=== PATIENT | female | born 1955 | race Hispanic/Latino ===

== ENCOUNTER 2023-12-05 12:25 | Emergency (ER) | payer OTHER ==
--- OUTSIDE RECORDS SUMMARY | 2023-12-05 12:30 | XMS REPORT | Continuity of Care Document ---
Author Name Unknown Address [address] [facility] [address] [place] [address] [facility] thconnect Address [address] [facility] [address] [place] [address] Care Team Providers Care Cattle Sticker Name Role Phone Donna GUADALUPE, Alessia D Primary Care Physician [phone] SIMEON VANEGAS Attending Clinician Unavailable ASHLI PHAN Attending Clinician Unavailable DESIRAE RAMIREZ Attending Clinician Unavailable ROCHELLE MURRY Attending Clinician Unavailable Syd Castillo MD Attending Clinician [phone] Attending Clinician Unavailable Les Dickinson MD Attending Clinician [phone] DANIEL MUSTAFA Attending Clinician Unavailab Gonzales_DIAMOND_NP Attending Clinician Unavailable PATEL TEIXEIRA Attending Clinician Unavailable DONNA ALESSIA D Attending Clinician Unavailable STEPH MCNEIL Attending Clinician Steph Sagastume APRN Attending Clinician PRISCILA RUDD Attending Clinician Paige ERICK Fajardo Attending Clinician Unavailable Itzel YOUNG, Alyssa Attending Clinician Unavailserena Bucio_S Attending Clinician Unavailable Loida YOUNG, Maria Elena Attending Clinician Unavailable Rafy YOUNG, Peri Attending Clinician Unavailab sung Brunner RN, Tatum Attending Clinician Unavailable LAURA BYRD Attending Clinician Unavail STEFANIA Evans M.D. Attending Clinician KAYLEE Gonzalez M.D.|PHD Attending Clinician U SIMEON Evans M.D. Attending Clinician HEBERT Reid Attending Clinician Unavailable ARIELLE MANCILLA M.D. Attending Clinician UnavailYURY Hicks M.D. Attending Clinician Unavail DEMETRICE Falk M.D. Attending Clinician Unavailab PATRICIA Velez M.D. Attending Clinician Unavail NITO Draper M.D. Attending Clinician Jessica CABEZAS_Jorge_DNU Admitting Clinician Unavailable Sage_Keegan_DIAMOND_NP Admitting Clinician Unavailable Fortunato_Ashley Admitting Clinician Unavailable Payers Payer Name Policy Type Policy Number Effective Date Expirati on Date Source [place] [id number] 2020 00:00:00 [facility] MEDICARE ADVANTAGE [id number] 2022 00:00:00 [place] [id number] 2020 00:00:00 Problems Condition Name Condition Details Condition Category Status Onset Date Resolution Date Last Treatment Date Treating Clinician Comments Source Simple obesity Simple obesity Disease Active 10-19 00:00: 00 [facility] Family history of ischemic heart disease and other diseases of the pulley worker y system Family history of ischemic heart disease and other diseases of the pulley worker y system Disease Active 10-19 00:00: 00 [facility] Dizziness Dizziness Disease Active 10-19 00:00: 00 [facility] Weakness Weakness Disease Active 10-19 00:00: 00 [facility] Diabetic polyneurop athy associated with type 2 diabetes mellitus Diabetic polyneurop athy associated with type 2 diabetes mellitus Disease Active 0 8-02 00:00: 00 [facility] Type 2 diabetes mellitus without complicati ons Type 2 diabetes mellitus without complicati ons Disease Active 0 9- 00:00: 00 [facility] Insomnia Insomnia Disease Active 0 9- 00:00: 00 [facility] TAMAR (generaliz ed anxiety disorder) TAMAR (generaliz ed anxiety disorder) Disease Active 0 9 00:00: 00 [facility] Severe episode of recurrent major depressive disorder, 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, without psychotic features Disease Active 0 9-15 00:00: 00 [facility] Acute left-sided low back pain with left-sided sciatica Acute left-sided low back pain with left-sided sciatica Disease Active 0 8-26 00:00: 00 [facility] Pain of left lower extremity Pain of left lower extremity Disease Active 0 8-19 00:00: 00 [facility] Carotid artery disease Carotid artery disease Disease Active 0 7-10 00:00: 00 [facility] Screening for diabetes mellitus (DM) Screening for diabetes mellitus (DM) Disease Active 0 7-06 00:00: 00 [facility] Mild depressive episode Mild depressive episode Disease Active 0 6-02 00:00: 00 [facility] Mild depressive episode Mild depressive episode Disease Active 0 6-02 00:00: 00 [facility] Contusion of right arm Contusion of right arm Disease Active 0 7-13 00:00: 00 [facility] Right shoulder pain Right shoulder pain Disease Active 0 7-13 00:00: 00 [facility] Right shoulder pain Right shoulder pain Disease Active 0 7-13 00:00: 00 [facility] Abnormal findings on diagnostic imaging of other parts of musculoske letal system Abnormal findings on diagnostic imaging of other parts of musculoske letal system Disease Active 2016-03 00:00: 00 [facility] Neck pain Neck pain Disease Active 2016-03 00:00: 00 [facility] Radiculopa thy Radiculopa thy Disease Active 2016-03 00:00: 00 [facility] Cough Cough Disease Active 2016-03 00:00: 00 [facility] Xerosis cutis Xerosis cutis Disease Active 08-10 00:00: 00 [facility] Other pruritus Other pruritus Disease Active 08-10 00:00: 00 [facility] De Quervain's tenosynovi tis De Quervain's tenosynovi tis Disease Active 2015-03 2 00:00: 00 [facility] Osteoarthr itis Osteoarthr itis Disease Active 09-14 00:00: 00 [facility] Iliotibial band syndrome of right side Iliotibial band syndrome of right side Disease Active 04-24 00:00: 00 [facility] Acute pain of right hip Acute pain of right hip Disease Active 03-24 00:00: 00 [facility] Allergic rhinitis Allergic rhinitis Disease Active 2014-03 00:00: 00 [facility] Abdominal pain Abdominal pain Disease Active 07-30 00:00: 00 [facility] Hemoptysis Hemoptysis Disease Active 2011-03 00:00: 00 Overview: Formattin g of this note might be different from the original. Data migrated from [employer] on 08/16/14. [facility] CAD (coronary artery disease) CAD (coronary artery disease) Disease Active 04-29 00:00: 00 Overview: Formattin g of this note might be different from the original. Formattin g of this note might be different from the original. Non-obstr uctive CAD at [facility]. [facility] Bradycardi a Bradycardi a Disease Active 12-17 00:00: 00 [facility] VT (ventricul ar tachycardi a) [place] (ventricul ar tachycardi a) Disease Active 2009-03 0 00:00: 00 Overview: Formattin g of this note might be different from the original. Formattin g of this note might be different from the original. NSVT [facility] Vitamin D deficiency Vitamin D deficiency Disease Active 08-28 00:00: 00 Overview: Formattin g of this note might be different from the original. Formattin g of this note might be different from the original. ICD-10 [facility] Palpitatio ns Palpitatio ns Disease Active 08-25 00:00: 00 [facility] Hyperlipid emia Hyperlipid emia Disease Active 08-25 00:00: 00 Overview: Formattin g of this note might be different from the original. Data migrated from [employer] on 08/16/14. [facility] History of hyperlipid emia History of hyperlipid emia Problem HL7.CCDAR2 [facility] Ab[facility] mammogram Abnormal mammogram Problem HL7.CCDAR2 Active [facility] Pain of right forearm Pain of right forearm Problem HL7.CCDAR2 Active [facility] Chest pain Chest pain Problem HL7.CCDAR2 Active [facility] Brachiorad ial pruritus Brachiorad ial pruritus Problem HL7.CCDAR2 Active [facility] Abnormal MRI, cervical spine Abnormal MRI, cervical spine Problem HL7.CCDAR2 Active [facility] Abnormal MRI, spine Abnormal MRI, spine Problem HL7.CCDAR2 Active [facility] Right elbow pain Right elbow pain Problem HL7.CCDAR2 Active [facility] Arm pain Arm pain Problem HL7.CCDAR2 Active [facility] Biceps tendinitis of right upper extremity Biceps tendinitis of right upper extremity Problem HL7.CCDAR2 Active [facility] Right wrist pain Right wrist pain Problem HL7.CCDAR2 Active [facility] Pain of right upper extremity Pain of right upper extremity Problem HL7.CCDAR2 Active [facility] Allergies, Adverse Reactions, Alerts Allergy Name Allergy Type Status Severity Reaction(s) Onset Date Inactive Date Treating Clinician Comments Source Milk (Cow) Allergy to substanc e Active 8 00:00: 00 [facility] Pollen Extract Allergy to substanc e Active 8 00:00: 00 [facility] Lactase- Lactobac illus Drug Allergy Active 8- 00:00: 00 [facility] Codeine Derivati ves drug allergy Active [facility] Dairy allergy to substanc e Active [facility] Milk allergy to substanc e Active [facility] Codeine Allergy to substanc e Active [facility] Social History Social Habit Start Date Stop Date Quantity Comments Source Sexual orientation 2023-02-27 13:53:13 Heterosexual (finding) [facility] History of tobacco use Cigarette Smoker [facility] Alcoholic beverage intake 2023-09-20 00:00:00 2023-09-20 00:00:00 Lifetime non-drinker (finding) [facility] Tobacco use and exposure 2023-09-12 00:00:00 2023-09-12 00:00:00 Smokeless tobacco non-user [facility] Cigarettes smoked current (pack per day) - Reported 2023-09-12 00:00:00 2023-09-12 00:00:00 [facility] Cigarette pack-years 2023-09-12 00:00:00 2023-09-12 00:00:00 [facility] History of Social function 2023-07-20 00:00:00 2023-07-20 00:00:00 [facility] Alcohol intake 2023-02-22 00:00:00 2023-02-22 00:00:00 Lifetime non-drinker (finding) [facility] Exposure to SARS-CoV-2 (event) 2022-05-30 00:00:00 2022-06-09 11:18:00 Not sure [facility] Sex assigned at 1955 00:00:00 1955 00:00:00 F [facility] Smoking Status Start Date Stop Date Source Never Smoker [facility] Ex-smoker 2023-09-12 00:00:00 2023-09-12 00:00:00 [facility] Medications Ordered Medication Name Filled Medication Name Start Date Stop Date Current Medication? Ordering Clinician Indication Dosage Frequency Signature (SIG) Comments Components Source Semaglutide , 1 MG/DOSE, 4 MG/3ML solution pen-injecto r 09-19 00:00: 00 Yes [id number] 1mg Inject 1 mg under the skin 1 (one) time per week. [facility] Semaglutide ,0.25 or 0.5MG/DOS, 2 MG/3ML solution pen-injecto r 09-19 00:00: 00 09-19 00:00 :00 No [id number] Inject 0.25 mg under the skin 1 (one) time per week for 28 days, THEN 0.5 mg 1 (one) time per week for 21 days. [facility] desloratadi ne (Clarinex) 5 MG tablet 07-19 00:00: 00 07-20 04:59 :00 No [id number] 5mg Take 1 tablet (5 mg total) by mouth 1 (one) time each day if needed (congestio n). [facility] amoxicillin (Amoxil) 500 MG capsule 07-19 00:00: 00 07-30 04:59 :00 No [id number] 500mg Q.[id number] 3D Take 1 capsule (500 mg total) by mouth in the morning and 1 capsule (500 mg total) at noon and 1 capsule (500 mg total) in the evening. Do all this for 10 days. [facility] OneTouch Verio test strip 06-08 00:00: 00 Yes [id number] USE TO TEST ONCE DAILY [facility] glipiZIDE XL (Glucotrol XL) 10 MG 24 hr tablet 2022-03 00:00: 00 Yes [id number] 10mg QD Take 1 tablet (10 mg total) by mouth 1 (one) time each day with breakfast. DO NOT CRUSH CHEW OR SPLIT [facility] empaglifloz in (Jardiance) 25 MG 2022-03 00:00: 00 03-01 05:59 :00 No [id number] 25mg QD Take 1 tablet (25 mg total) by mouth 1 (one) time each day. [facility] Probiotic Product (PROBIOTIC DAILY PO) 2022-03 13:35: 07 Yes Take by mouth. [facility] Coenzyme Q10 (Co Q-10) 50 MG capsule capsule 2022-03 13:35: 07 Yes 50mg QD Take 50 mg by mouth 1 (one) time each day. [facility] Probiotic Product (PROBIOTIC DAILY PO) 2022-03 09:07: 29 Yes Take by mouth. [facility] Coenzyme Q10 (Co Q-10) 50 MG capsule capsule 2022-03 09:07: 29 Yes 50mg QD Take 50 mg by mouth 1 (one) time each day. [facility] aspirin 81 MG EC tablet 2022-03 09:37: 12 01-25 00:00 :00 No 81mg QD Take 81 mg by mouth 1 (one) time each day. [facility] Coenzyme Q10 (Co Q-10) 50 MG capsule capsule 2022-03 09:20: 52 Yes 50mg QD Take 50 mg by mouth 1 (one) time each day. [facility] Probiotic Product (PROBIOTIC DAILY PO) 2022-03 09:20: 28 Yes Take by mouth. [facility] aspirin 81 MG EC tablet 2022-03 00:00: 00 Yes [id number] 81mg QD Take 1 tablet (81 mg total) by mouth 1 (one) time each day. [facility] atorvastati n (Lipitor) 80 MG tablet 2022-03 00:00: 00 01-25 05:59 :00 No [id number] 80mg QD Take 1 tablet (80 mg total) by mouth 1 (one) time each day. [facility] meclizine (Antivert) 25 MG tablet 2022-03 00:00: 00 05-25 05:59 :00 No [id number] 25mg Q.[id number] 3D Take 1 tablet (25 mg total) by mouth 3 (three) times a day if needed for dizziness. [facility] omeprazole (PriLOSEC) [address] capsule 08-16 00:00: 00 01-25 00:00 :00 No [id number] TAKE 1 CAPSULE (20 MG TOTAL) BY MOUTH 2 (TWO) TIMES A DAY IF NEEDED. DO NOT CRUSH OR CHEW. [facility] atorvastati n (Lipitor) 80 MG tablet 07-26 00:00: 07-26 04:59 :00 No [id number] 80mg QD Take 1 tablet (80 mg total) by mouth 1 (one) time each day. [facility] diclofenac (Voltaren) 75 MG EC tablet 07-18 00:00: 00 Yes [id number] TAKE 1 TABLET BY MOUTH TWICE A DAY IN THE MORNING AND IN THE EVENING [facility] aspirin 81 MG EC tablet 06-10 16:19: 21 Yes 81mg QD Take 81 mg by mouth 1 (one) time each day. [facility] Probiotic Product (PROBIOTIC DAILY PO) 06-10 16:19: 21 Yes Take by mouth. [facility] omeprazole (PriLOSEC) [address] capsule 06-10 00:00: 00 Yes [id number] 20mg Q.5D Take 1 capsule (20 mg total) by mouth 2 (two) times a day if needed (prn). Do not crush or chew. [facility] sucralfate (Carafate) 1 GM/10ML suspension 06-10 00:00: 00 07-11 04:59 :00 No [id number] 1g Take 10 mL (1 g total) by mouth in the morning and 10 mL (1 g total) at noon and 10 mL (1 g total) in the evening. Take before meals. [facility] diclofenac (Voltaren) 75 MG EC tablet 04-20 00:00: 00 05-21 05:59 :00 No [id number] 75mg Q.5D Take 1 tablet (75 mg total) by mouth in the morning and 1 tablet (75 mg total) in the evening. Do not crush, chew, or split. . [facility] glipiZIDE XL (Glucotrol XL) 10 MG 24 hr tablet 2021-03 00:00: 00 Yes [id number] TAKE 1 TABLET BY MOUTH 1 TIME EACH DAY WITH BREAKFAST. DO NOT CRUSH, CHEW, OR SPLIT. [facility] OneTouch Verio test strip 2021-03 00:00: 00 Yes [id number] USE TO TEST ONCE DAILY [facility] diclofenac (Voltaren) 75 MG EC tablet 11-24 00:00: 00 12-25 04:59 :00 No [id number] 75mg Q.5D Take 1 tablet (75 mg total) by mouth in the morning and 1 tablet (75 mg total) in the evening. Do not crush, chew, or split. . [facility] Diclofenac Sodium (Voltaren) 1 % external gel 11-24 00:00: 00 12-25 04:59 :00 No [id number] Q.[id number] 3D Apply topically 3 (three) times a day. [facility] Rosuvastati n Calcium 40 MG capsule sprinkle 05-17 00:00: 00 Yes [facility] aspirin 81 MG EC tablet 03-23 09:19: 36 03-23 00:00 :00 No 81mg 81 mg. [facility] atorvastati n (Lipitor) 80 MG tablet 03-23 00:00: 00 03-24 05:59 :00 No [id number] 80mg QD Take 1 tablet (80 mg total) by mouth 1 (one) time each day. [facility] aspirin 81 MG EC tablet 03-23 00:00: 00 03-24 05:59 :00 No [id number] 81mg Take 1 tablet (81 mg total) by mouth 1 (one) time for 1 dose. [facility] rosuvastati n (Crestor) 40 MG tablet 03-23 00:00: 00 03-23 00:00 :00 No [id number] 40mg Take 1 tablet (40 mg total) by mouth every night. [facility] glipiZIDE XL (Glucotrol XL) 10 MG 24 hr tablet 03-22 00:00: 00 03-23 05:59 :00 No [id number] 10mg QD Take 1 tablet (10 mg total) by mouth 1 (one) time each day with breakfast. Do not crush, chew, or split. [facility] rosuvastati n (Crestor) 40 MG tablet 2020-03 00:00: 00 03-23 00:00 :00 No [id number] TAKE 1 TABLET BY MOUTH EVERYDAY AT BEDTIME [facility] OneTouch Verio test strip 11-18 00:00: 00 Yes [id number] USE TO TEST ONCE DAILY [facility] ezetimibe (Zetia) 10 MG tablet 10-29 00:00: 00 03-22 00:00 :00 No [id number] 10mg QD Take 1 tablet (10 mg total) by mouth 1 (one) time each day. [facility] aspirin (ASPIR) 81 MG EC tablet 10-19 14:56: 02 Yes 81mg 81 mg. [facility] aspirin (ASPIR) 81 MG EC tablet 10-19 09:56: 02 Yes 81mg 81 mg. [facility] pregabalin (Lyrica) 75 MG capsule 10-19 00:00: 00 01-25 00:00 :00 No [id number] 75mg QD Take 1 capsule (75 mg total) by mouth 1 (one) time each day. Take 1 capsule at night [facility] linaGLIPtin (Tradjenta) 5 MG tablet 10-19 00:00: 00 03-22 00:00 :00 No [id number] 5mg QD Take 1 tablet (5 mg total) by mouth 1 (one) time each day. [facility] rosuvastati n (Crestor) 40 MG tablet 10-12 00:00: 00 01-08 00:00 :00 No [id number] TAKE 1 TABLET BY MOUTH EVERYDAY AT BEDTIME [facility] OneTouch Verio test strip 606 00:00: 00 11-18 00:00 :00 No USE TO TEST ONCE DAILY [facility] escitalopra m (Lexapro) 10 MG tablet 07-10 00:00: 00 03-23 00:00 :00 No 10mg Take 10 mg by mouth 1 (one) time each day in the morning. [facility] Lancets (OneTouch Delica Plus [id number]) [facility] 8 00:00: 00 Yes USE 1 LANCET TO TEST YOUR BLOOD SUGAR 1 TIMES A DAY. [facility] SITagliptin (Januvia) 100 MG tablet 10-13 00:00: 00 10-19 00:00 :00 No 100mg 100 mg. [facility] Escitalopra m Oxalate 10 MG Oral Tablet Escitalopra m Oxalate 10 MG Oral Tablet 2017-03 11:56: 45 Yes KAYLEE CARLSON M.D., PHD 1 TAKE 1 TABLET BY MOUTH EVERY DAY IN THE MORNING [facility] Methocarbam ol 500 MG Oral Tablet Methocarbam ol 500 MG Oral Tablet 09-29 00:00: 00 Yes STEFANIA NIX M.D. 1 TAKE 1 TABLET BEDTIME [facility] Meloxicam 15 MG Oral Tablet Meloxicam 15 MG Oral Tablet 09-29 00:00: 00 Yes STEFANIA NIX M.D. 1 QD TAKE 1 TABLET DAILY [facility] Omeprazole 40 MG Oral Capsule Delayed Release Omeprazole 40 MG Oral Capsule Delayed Release 09-29 00:00: 00 Yes STEFANIA NIX M.D. 1 QD TAKE 1 CAPSULE DAILY [facility] MethylPREDN ISolone 4 MG Oral Tablet Therapy Pack MethylPREDN ISolone 4 MG Oral Tablet Therapy Pack 09-29 00:00: 00 Yes STEFANIA NIX M.D. TAKE DIRECTED ON PACK.(tape r method) x7 days [facility] Rosuvastati n Calcium 40 MG Oral Tablet Rosuvastati n Calcium 40 MG Oral Tablet 10-24 00:00: 00 Yes SIMEON VANEGAS M.D. TAKE 1 TABLET BY MOUTH AT BEDTIME [facility] ans amoxicillin 875 mg-potassiu m clavulanate 125 mg tablet Take 1 tablet every 12 hours by oral route for 7 days. amoxicillin 875 mg-potassiu m clavulanate 125 mg tablet Take 1 tablet every 12 hours by oral route for 7 days. No 1 Q12H amoxicilli n 875 mg-potassi um clavulanat e 125 mg tablet Take 1 tablet every 12 hours by oral route for 7 days. [facility] aspirin 81 mg capsule Take 1 capsule every day by oral route. aspirin 81 mg capsule Take 1 capsule every day by oral route. No 1capsul e(s) Q1D aspirin 81 mg capsule Take 1 capsule every day by oral route. [facility] Crestor 40 mg tablet Take 1 tablet every day by oral route. Crestor 40 mg tablet Take 1 tablet every day by oral route. No 1 Q1D Crestor 40 mg tablet Take 1 tablet every day by oral route. [facility] glipizide 10 mg tablet Take 1 tablet every day by oral route. glipizide 10 mg tablet Take 1 tablet every day by oral route. No 1 Q1D glipizide 10 mg tablet Take 1 tablet every day by oral route. [facility] Aspir-81 81 MG Oral Tablet Delayed Release Aspir-81 81 MG Oral Tablet Delayed Release Yes SIMEON VANEGAS M.D. 1 QD TAKE 1 TABLET DAILY [facility] ans mupirocin 2 % topical ointment APPLY A SMALL AMOUNT TO THE AFFECTED AREA BY TOPICAL ROUTE 3 TIMES PER DAY mupirocin 2 % topical ointment APPLY A SMALL AMOUNT TO THE AFFECTED AREA BY TOPICAL ROUTE 3 TIMES PER DAY No mupirocin 2 % topical ointment APPLY A SMALL AMOUNT TO THE AFFECTED AREA BY TOPICAL ROUTE 3 TIMES PER DAY [facility] Immunizations Ordered Immunization Name Filled Immunization Name Date Status Comments Source Influenza, injectable, MDCK, preservative free, quadrivalent (flucelvax) 2021-11-17 00:00:00 Completed [facility] Influenza, injectable, MDCK, preservative free, quadrivalent (flucelvax) 2021-11-17 00:00:00 Completed [facility] Tdap 2021-08-09 00:00:00 Completed [facility] Tdap 2021-08-09 00:00:00 Completed [facility] COVID-19 vaccine, vector-nr, rS-Ad26, PF, 0.5 mL ([place]) COVID-19 vaccine, vector-nr, rS-Ad26, PF, 0.5 mL ([place]) 2021-06-29 00:00:00 Completed [facility] COVID-19 [place] 18 & Over Vaccination 2021-06-29 00:00:00 Completed [facility] COVID-19 [place] 18 & Over Vaccination 2021-06-29 00:00:00 Completed [facility] COVID-19 vaccine, vector-nr, rS-Ad26, PF, 0.5 mL ([place]) COVID-19 vaccine, vector-nr, rS-Ad26, PF, 0.5 mL ([place]) 2021-02-18 00:00:00 Completed [facility] COVID-19 Pfizer 12 & Over Vaccination 2021-02-18 00:00:00 Completed [facility] COVID-19 Pfizer 12 & Over Vaccination 2021-02-18 00:00:00 Completed [facility] COVID-19 Pfizer 12 & Over Vaccination 2021-02-18 00:00:00 Completed [facility] COVID-19 Pfizer 12 & Over Vaccination 2021-02-18 00:00:00 Completed [facility] COVID-19 Pfizer 12 & Over Vaccination (PURPLE-DILUTE) 2021-02-18 00:00:00 Completed [facility] COVID-19 Pfizer 12 & Over Vaccination (PURPLE-DILUTE) 2021-02-18 00:00:00 Completed [facility] COVID-19 Pfizer 12 & Over Vaccination (PURPLE-DILUTE) 2021-02-18 00:00:00 Completed [facility] COVID-19 Pfizer 12 & Over Vaccination (PURPLE-DILUTE) 2021-02-18 00:00:00 Completed [facility] COVID-19 Pfizer 12 & Over Vaccination (PURPLE-DILUTE) 2021-02-18 00:00:00 Completed [facility] COVID-19 Pfizer 12 & Over Vaccination (PURPLE-DILUTE) 2021-02-18 00:00:00 Completed [facility] COVID-19 [place] 18 & Over Vaccination 2021-02-18 00:00:00 Completed [facility] COVID-19 Pfizer 12 & Over Vaccination (PURPLE-DILUTE) 2021-02-18 00:00:00 Completed [facility] COVID-19 [place] 18 & Over Vaccination 2021-02-18 00:00:00 Completed [facility] Influenza, injectable, quadrivalent, preservative free 2020-12-14 00:00:00 Completed [facility] Influenza, injectable, quadrivalent, preservative free 2020-12-14 00:00:00 Completed [facility] Influenza, injectable, quadrivalent, preservative free 2020-12-14 00:00:00 Completed [facility] Influenza, injectable, quadrivalent, preservative free 2020-12-14 00:00:00 Completed [facility] Influenza, injectable, quadrivalent, preservative free (afluria, fluarix, flulaval, fluzone) 2020-12-14 00:00:00 Completed [facility] Influenza, injectable, quadrivalent, preservative free (afluria, fluarix, flulaval, fluzone) 2020-12-14 00:00:00 Completed [facility] Influenza, injectable, quadrivalent, preservative free (afluria, fluarix, flulaval, fluzone) 2020-12-14 00:00:00 Completed [facility] Influenza, injectable, quadrivalent, preservative free (afluria, fluarix, flulaval, fluzone) 2020-12-14 00:00:00 Completed [facility] Influenza, injectable, quadrivalent, preservative free (afluria, fluarix, flulaval, fluzone) 2020-12-14 00:00:00 Completed [facility] Influenza, injectable, quadrivalent, preservative free (afluria, fluarix, flulaval, fluzone) 2020-12-14 00:00:00 Completed [facility] Influenza, injectable, quadrivalent, preservative free (afluria, fluarix, flulaval, fluzone) 2020-12-14 00:00:00 Completed [facility] Zoster, Recombinant 2020-09-14 00:00:00 Completed [facility] Zoster, Recombinant 2020-09-14 00:00:00 Completed [facility] Zoster, Recombinant 2020-09-14 00:00:00 Completed [facility] Zoster, Recombinant 2020-09-14 00:00:00 Completed [facility] Zoster, Recombinant 2020-09-14 00:00:00 Completed [facility] Zoster, Recombinant 2020-09-14 00:00:00 Completed [facility] Zoster, Recombinant 2020-09-14 00:00:00 Completed [facility] Zoster, Recombinant 2020-09-14 00:00:00 Completed [facility] Zoster, Recombinant 2020-09-14 00:00:00 Completed [facility] Zoster, Recombinant 2020-09-14 00:00:00 Completed [facility] Zoster, Recombinant 2020-09-14 00:00:00 Completed [facility] Pneumococcal Polysaccharide PPV23 2020-07-16 00:00:00 Completed [facility] Zoster, Recombinant 2020-07-16 00:00:00 Completed [facility] Pneumococcal Polysaccharide PPV23 2020-07-16 00:00:00 Completed [facility] Zoster, Recombinant 2020-07-16 00:00:00 Completed [facility] Pneumococcal Polysaccharide PPV23 2020-07-16 00:00:00 Completed [facility] Zoster, Recombinant 2020-07-16 00:00:00 Completed [facility] Pneumococcal Polysaccharide PPV23 2020-07-16 00:00:00 Completed [facility] Zoster, Recombinant 2020-07-16 00:00:00 Completed [facility] Pneumococcal Polysaccharide PPV23 2020-07-16 00:00:00 Completed [facility] Zoster, Recombinant 2020-07-16 00:00:00 Completed [facility] Pneumococcal Polysaccharide PPV23 2020-07-16 00:00:00 Completed [facility] Zoster, Recombinant 2020-07-16 00:00:00 Completed [facility] Pneumococcal Polysaccharide PPV23 2020-07-16 00:00:00 Completed [facility] Zoster, Recombinant 2020-07-16 00:00:00 Completed [facility] Pneumococcal Polysaccharide PPV23 2020-07-16 00:00:00 Completed [facility] Zoster, Recombinant 2020-07-16 00:00:00 Completed [facility] Pneumococcal Polysaccharide PPV23 2020-07-16 00:00:00 Completed [facility] Zoster, Recombinant 2020-07-16 00:00:00 Completed [facility] Pneumococcal Polysaccharide PPV23 2020-07-16 00:00:00 Completed [facility] Zoster, Recombinant 2020-07-16 00:00:00 Completed [facility] Pneumococcal Polysaccharide PPV23 2020-07-16 00:00:00 Completed [facility] Zoster, Recombinant 2020-07-16 00:00:00 Completed [facility] COVID-19 vaccine, vector-nr, rS-Ad26, PF, 0.5 mL ([place]) COVID-19 vaccine, vector-nr, rS-Ad26, PF, 0.5 mL ([place]) 2020-05-25 00:00:00 Completed [facility] COVID-19 [place] 18 & Over Vaccination 2020-05-25 00:00:00 Completed [facility] COVID-19 [place] 18 & Over Vaccination 2020-05-25 00:00:00 Completed [facility] COVID-19 [place] 18 & Over Vaccination 2020-05-25 00:00:00 Completed [facility] COVID-19 [place] 18 & Over Vaccination 2020-05-25 00:00:00 Completed [facility] COVID-19 [place] 18 & Over Vaccination 2020-05-25 00:00:00 Completed [facility] COVID-19 [place] 18 & Over Vaccination 2020-05-25 00:00:00 Completed [facility] COVID-19 [place] 18 & Over Vaccination 2020-05-25 00:00:00 Completed [facility] COVID-19 [place] 18 & Over Vaccination 2020-05-25 00:00:00 Completed [facility] COVID-19 [place] 18 & Over Vaccination 2020-05-25 00:00:00 Completed [facility] COVID-19 [place] 18 & Over Vaccination 2020-05-25 00:00:00 Completed [facility] COVID-19 [place] 18 & Over Vaccination 2020-05-25 00:00:00 Completed [facility] Fluzone Quadrivalent 0.5 ML Intramuscular Suspension 2014-06-06 00:00:00 Completed [facility] Influenza, injectable, quadrivalent, preservative free 2014-06-06 00:00:00 Completed [facility] Influenza, injectable, quadrivalent, preservative free 2014-06-06 00:00:00 Completed [facility] Influenza, injectable, quadrivalent, preservative free 2014-06-06 00:00:00 Completed [facility] Influenza, injectable, quadrivalent, preservative free 2014-06-06 00:00:00 Completed [facility] Influenza, injectable, quadrivalent, preservative free (afluria, fluarix, flulaval, fluzone) 2014-06-06 00:00:00 Completed [facility] Influenza, injectable, quadrivalent, preservative free (afluria, fluarix, flulaval, fluzone) 2014-06-06 00:00:00 Completed [facility] Influenza, injectable, quadrivalent, preservative free (afluria, fluarix, flulaval, fluzone) 2014-06-06 00:00:00 Completed [facility] Influenza, injectable, quadrivalent, preservative free (afluria, fluarix, flulaval, fluzone) 2014-06-06 00:00:00 Completed [facility] Influenza, injectable, quadrivalent, preservative free (afluria, fluarix, flulaval, fluzone) 2014-06-06 00:00:00 Completed [facility] Influenza, injectable, quadrivalent, preservative free (afluria, fluarix, flulaval, fluzone) 2014-06-06 00:00:00 Completed [facility] Influenza, injectable, quadrivalent, preservative free (afluria, fluarix, flulaval, fluzone) 2014-06-06 00:00:00 Completed [facility] Fluzone Preservative Free SUSP 2012-12-17 09:09:00 Completed [facility] Influenza, seasonal, injectable, preservative free 2012-12-17 00:00:00 Completed [facility] Influenza, seasonal, injectable, preservative free 2012-12-17 00:00:00 Completed [facility] Influenza, seasonal, injectable, preservative free 2012-12-17 00:00:00 Completed [facility] Influenza, seasonal, injectable, preservative free 2012-12-17 00:00:00 Completed [facility] Influenza, seasonal, injectable, preservative free 2012-12-17 00:00:00 Completed [facility] Influenza, seasonal, injectable, preservative free 2012-12-17 00:00:00 Completed [facility] Influenza, seasonal, injectable, preservative free 2012-12-17 00:00:00 Completed [facility] Influenza, seasonal, injectable, preservative free 2012-12-17 00:00:00 Completed [facility] Influenza, seasonal, injectable, preservative free 2012-12-17 00:00:00 Completed [facility] Influenza, seasonal, injectable, preservative free 2012-12-17 00:00:00 Completed [facility] Influenza, seasonal, injectable, preservative free 2012-12-17 00:00:00 Completed [facility] Influenza, injectable, quadrivalent 2010-12-07 00:00:00 Completed [facility] Influenza, injectable, quadrivalent 2010-12-07 00:00:00 Completed [facility] Influenza, injectable, quadrivalent 2010-12-07 00:00:00 Completed [facility] Influenza, injectable, quadrivalent 2010-12-07 00:00:00 Completed [facility] Influenza, injectable, quadrivalent (afluria, fluzone) 2010-12-07 00:00:00 Completed [facility] Influenza, injectable, quadrivalent (afluria, fluzone) 2010-12-07 00:00:00 Completed [facility] Influenza, injectable, quadrivalent (afluria, fluzone) 2010-12-07 00:00:00 Completed [facility] Influenza, injectable, quadrivalent (afluria, fluzone) 2010-12-07 00:00:00 Completed [facility] Influenza, injectable, quadrivalent (afluria, fluzone) 2010-12-07 00:00:00 Completed [facility] Influenza, injectable, quadrivalent (afluria, fluzone) 2010-12-07 00:00:00 Completed [facility] Influenza, injectable, quadrivalent (afluria, fluzone) 2010-12-07 00:00:00 Completed [facility] Td (adult), 5 Lf tetanus toxoid, preservative free, adsorbed 2008-10-18 00:00:00 Completed [facility] Td (adult), 5 Lf tetanus toxoid, preservative free, adsorbed 2008-10-18 00:00:00 Completed [facility] Td (adult), 5 Lf tetanus toxoid, preservative free, adsorbed 2008-10-18 00:00:00 Completed [facility] Td (adult), 5 Lf tetanus toxoid, preservative free, adsorbed 2008-10-18 00:00:00 Completed [facility] Td (adult), 5 Lf tetanus toxoid, preservative free, adsorbed 2008-10-18 00:00:00 Completed [facility] Td (adult), 5 Lf tetanus toxoid, preservative free, adsorbed 2008-10-18 00:00:00 Completed [facility] Td (adult), 5 Lf tetanus toxoid, preservative free, adsorbed 2008-10-18 00:00:00 Completed [facility] Td (adult), 5 Lf tetanus toxoid, preservative free, adsorbed 2008-10-18 00:00:00 Completed [facility] Td (adult), 5 Lf tetanus toxoid, preservative free, adsorbed 2008-10-18 00:00:00 Completed [facility] Td (adult), 5 Lf tetanus toxoid, preservative free, adsorbed 2008-10-18 00:00:00 Completed [facility] Td (adult), 5 Lf tetanus toxoid, preservative free, adsorbed 2008-10-18 00:00:00 Completed [facility] COVID-19 [place] 18 & Over Vaccination Unknown Completed [facility] Influenza, injectable, quadrivalent (afluria, fluzone) Unknown Completed [facility] Influenza, injectable, quadrivalent, preservative free (afluria, fluarix, flulaval, fluzone) Unknown Completed [facility] Influenza, injectable, quadrivalent, preservative free (afluria, fluarix, flulaval, fluzone) Unknown Completed [facility] Influenza, seasonal, injectable, preservative free Unknown Completed [facility] Pneumococcal Polysaccharide PPV23 Unknown Completed [facility] Td (adult), 5 Lf tetanus toxoid, preservative free, adsorbed Unknown Completed [facility] Zoster, Recombinant Unknown Completed [facility] Zoster, Recombinant Unknown Completed [facility] COVID-19 Pfizer 12 & Over Vaccination ([place]) Unknown Completed [facility] Influenza, injectable, MDCK, preservative free, quadrivalent (flucelvax) Unknown Completed [facility] COVID-19 [place] 18 & Over Vaccination Unknown Completed [facility] COVID-19 [place] 18 & Over Vaccination Unknown Completed [facility] Tdap Unknown Completed [facility] COVID-19 Pfizer 12 & Over Vaccination ([place]) Unknown Completed [facility] COVID-19 Pfizer 12 & Over Vaccination ([place]) Unknown Completed [facility] Influenza, injectable, quadrivalent, preservative free (afluria, fluarix, flulaval, fluzone) Unknown Completed [facility] COVID-19 [place] 18 & Over Vaccination Unknown Completed [facility] Influenza, injectable, quadrivalent (afluria, fluzone) Unknown Completed [facility] Influenza, injectable, quadrivalent, preservative free (afluria, fluarix, flulaval, fluzone) Unknown Completed [facility] Influenza, injectable, quadrivalent, preservative free (afluria, fluarix, flulaval, fluzone) Unknown Completed [facility] Influenza, seasonal, injectable, preservative free Unknown Completed [facility] Pneumococcal Polysaccharide PPV23 Unknown Completed [facility] Td (adult), 5 Lf tetanus toxoid, preservative free, adsorbed Unknown Completed [facility] Zoster, Recombinant Unknown Completed [facility] Zoster, Recombinant Unknown Completed [facility] COVID-19 Pfizer 12 & Over Vaccination ([place]) Unknown Completed [facility] Influenza, injectable, MDCK, preservative free, quadrivalent (flucelvax) Unknown Completed [facility] COVID-19 [place] 18 & Over Vaccination Unknown Completed [facility] COVID-19 [place] 18 & Over Vaccination Unknown Completed [facility] Tdap Unknown Completed [facility] COVID-19 Pfizer 12 & Over Vaccination ([place]) Unknown Completed [facility] COVID-19 Pfizer 12 & Over Vaccination ([place]) Unknown Completed [facility] Influenza, injectable, quadrivalent, preservative free (afluria, fluarix, flulaval, fluzone) Unknown Completed [facility] COVID-19 [place] 18 & Over Vaccination Unknown Completed [facility] Influenza, injectable, quadrivalent (afluria, fluzone) Unknown Completed [facility] Influenza, injectable, quadrivalent, preservative free (afluria, fluarix, flulaval, fluzone) Unknown Completed [facility] Influenza, injectable, quadrivalent, preservative free (afluria, fluarix, flulaval, fluzone) Unknown Completed [facility] Influenza, seasonal, injectable, preservative free Unknown Completed [facility] Pneumococcal Polysaccharide PPV23 Unknown Completed [facility] Td (adult), 5 Lf tetanus toxoid, preservative free, adsorbed Unknown Completed [facility] Zoster, Recombinant Unknown Completed [facility] Zoster, Recombinant Unknown Completed [facility] COVID-19 Pfizer 12 & Over Vaccination ([place]) Unknown Completed [facility] Influenza, injectable, MDCK, preservative free, quadrivalent (flucelvax) Unknown Completed [facility] COVID-19 [place] 18 & Over Vaccination Unknown Completed [facility] COVID-19 [place] 18 & Over Vaccination Unknown Completed [facility] Tdap Unknown Completed [facility] COVID-19 Pfizer 12 & Over Vaccination ([place]) Unknown Completed [facility] COVID-19 Pfizer 12 & Over Vaccination ([place]) Unknown Completed [facility] Influenza, injectable, quadrivalent, preservative free (afluria, fluarix, flulaval, fluzone) Unknown Completed [facility] COVID-19 [place] 18 & Over Vaccination Unknown Completed [facility] Influenza, injectable, quadrivalent (afluria, fluzone) Unknown Completed [facility] Influenza, injectable, quadrivalent, preservative free (afluria, fluarix, flulaval, fluzone) Unknown Completed [facility] Influenza, injectable, quadrivalent, preservative free (afluria, fluarix, flulaval, fluzone) Unknown Completed [facility] Influenza, seasonal, injectable, preservative free Unknown Completed [facility] Pneumococcal Polysaccharide PPV23 Unknown Completed [facility] Td (adult), 5 Lf tetanus toxoid, preservative free, adsorbed Unknown Completed [facility] Zoster, Recombinant Unknown Completed [facility] Zoster, Recombinant Unknown Completed [facility] COVID-19 Pfizer 12 & Over Vaccination ([place]) Unknown Completed [facility] Influenza, injectable, MDCK, preservative free, quadrivalent (flucelvax) Unknown Completed [facility] COVID-19 [place] 18 & Over Vaccination Unknown Completed [facility] COVID-19 [place] 18 & Over Vaccination Unknown Completed [facility] Tdap Unknown Completed [facility] COVID-19 Pfizer 12 & Over Vaccination ([place]) Unknown Completed [facility] COVID-19 Pfizer 12 & Over Vaccination ([place]) Unknown Completed [facility] Influenza, injectable, quadrivalent, preservative free (afluria, fluarix, flulaval, fluzone) Unknown Completed [facility] COVID-19 [place] 18 & Over Vaccination Unknown Completed [facility] Influenza, injectable, quadrivalent (afluria, fluzone) Unknown Completed [facility] Influenza, injectable, quadrivalent, preservative free (afluria, fluarix, flulaval, fluzone) Unknown Completed [facility] Influenza, injectable, quadrivalent, preservative free (afluria, fluarix, flulaval, fluzone) Unknown Completed [facility] Influenza, seasonal, injectable, preservative free Unknown Completed [facility] Pneumococcal Polysaccharide PPV23 Unknown Completed [facility] Td (adult), 5 Lf tetanus toxoid, preservative free, adsorbed Unknown Completed [facility] Zoster, Recombinant Unknown Completed [facility] Zoster, Recombinant Unknown Completed [facility] COVID-19 Pfizer 12 & Over Vaccination ([place]) Unknown Completed [facility] Influenza, injectable, MDCK, preservative free, quadrivalent (flucelvax) Unknown Completed [facility] COVID-19 [place] 18 & Over Vaccination Unknown Completed [facility] COVID-19 [place] 18 & Over Vaccination Unknown Completed [facility] Tdap Unknown Completed [facility] COVID-19 Pfizer 12 & Over Vaccination ([place]) Unknown Completed [facility] COVID-19 Pfizer 12 & Over Vaccination ([place]) Unknown Completed [facility] Influenza, injectable, quadrivalent, preservative free (afluria, fluarix, flulaval, fluzone) Unknown Completed [facility] COVID-19 [place] 18 & Over Vaccination Unknown Completed [facility] Influenza, injectable, quadrivalent (afluria, fluzone) Unknown Completed [facility] Influenza, injectable, quadrivalent, preservative free (afluria, fluarix, flulaval, fluzone) Unknown Completed [facility] Influenza, injectable, quadrivalent, preservative free (afluria, fluarix, flulaval, fluzone) Unknown Completed [facility] Influenza, seasonal, injectable, preservative free Unknown Completed [facility] Pneumococcal Polysaccharide PPV23 Unknown Completed [facility] Td (adult), 5 Lf tetanus toxoid, preservative free, adsorbed Unknown Completed [facility] Zoster, Recombinant Unknown Completed [facility] Zoster, Recombinant Unknown Completed [facility] COVID-19 Pfizer 12 & Over Vaccination ([place]) Unknown Completed [facility] Influenza, injectable, MDCK, preservative free, quadrivalent (flucelvax) Unknown Completed [facility] COVID-19 [place] 18 & Over Vaccination Unknown Completed [facility] COVID-19 [place] 18 & Over Vaccination Unknown Completed [facility] Tdap Unknown Completed [facility] COVID-19 Pfizer 12 & Over Vaccination ([place]) Unknown Completed [facility] COVID-19 Pfizer 12 & Over Vaccination ([place]) Unknown Completed [facility] Influenza, injectable, quadrivalent, preservative free (afluria, fluarix, flulaval, fluzone) Unknown Completed [facility] COVID-19 [place] 18 & Over Vaccination Unknown Completed [facility] Influenza, injectable, quadrivalent (afluria, fluzone) Unknown Completed [facility] Influenza, injectable, quadrivalent, preservative free (afluria, fluarix, flulaval, fluzone) Unknown Completed [facility] Influenza, injectable, quadrivalent, preservative free (afluria, fluarix, flulaval, fluzone) Unknown Completed [facility] Influenza, seasonal, injectable, preservative free Unknown Completed [facility] Pneumococcal Polysaccharide PPV23 Unknown Completed [facility] Td (adult), 5 Lf tetanus toxoid, preservative free, adsorbed Unknown Completed [facility] Zoster, Recombinant Unknown Completed [facility] Zoster, Recombinant Unknown Completed [facility] COVID-19 Pfizer 12 & Over Vaccination ([place]) Unknown Completed [facility] Influenza, injectable, MDCK, preservative free, quadrivalent (flucelvax) Unknown Completed [facility] COVID-19 [place] 18 & Over Vaccination Unknown Completed [facility] COVID-19 [place] 18 & Over Vaccination Unknown Completed [facility] Tdap Unknown Completed [facility] COVID-19 Pfizer 12 & Over Vaccination ([place]) Unknown Completed [facility] COVID-19 Pfizer 12 & Over Vaccination ([place]) Unknown Completed [facility] Influenza, injectable, quadrivalent, preservative free (afluria, fluarix, flulaval, fluzone) Unknown Completed [facility] COVID-19 [place] 18 & Over Vaccination Unknown Completed [facility] Influenza, injectable, quadrivalent (afluria, fluzone) Unknown Completed [facility] Influenza, injectable, quadrivalent, preservative free (afluria, fluarix, flulaval, fluzone) Unknown Completed [facility] Influenza, injectable, quadrivalent, preservative free (afluria, fluarix, flulaval, fluzone) Unknown Completed [facility] Influenza, seasonal, injectable, preservative free Unknown Completed [facility] Pneumococcal Polysaccharide PPV23 Unknown Completed [facility] Td (adult), 5 Lf tetanus toxoid, preservative free, adsorbed Unknown Completed [facility] Zoster, Recombinant Unknown Completed [facility] Zoster, Recombinant Unknown Completed [facility] COVID-19 Pfizer 12 & Over Vaccination ([place]) Unknown Completed [facility] Influenza, injectable, MDCK, preservative free, quadrivalent (flucelvax) Unknown Completed [facility] COVID-19 [place] 18 & Over Vaccination Unknown Completed [facility] COVID-19 [place] 18 & Over Vaccination Unknown Completed [facility] Tdap Unknown Completed [facility] COVID-19 Pfizer 12 & Over Vaccination ([place]) Unknown Completed [facility] Pneumococcal Conjugate PCV 20 Unknown Completed [facility] COVID-19 [place] 18 & Over Vaccination Unknown Completed [facility] Influenza, injectable, quadrivalent (afluria, fluzone) Unknown Completed [facility] Influenza, injectable, quadrivalent, preservative free (afluria, fluarix, flulaval, fluzone) Unknown Completed [facility] Influenza, injectable, quadrivalent, preservative free (afluria, fluarix, flulaval, fluzone) Unknown Completed [facility] Influenza, seasonal, injectable, preservative free Unknown Completed [facility] Pneumococcal Polysaccharide PPV23 Unknown [facility] 5 Lf tetanus toxoid, preservative free, adsorbed Unknown Completed [facility] Zoster, Recombinant Unknown Completed [facility] Zoster, Recombinant Unknown Completed [facility] COVID-19 Pfizer 12 & Over Vaccination ([place]) Unknown Completed [facility] Influenza, injectable, MDCK, preservative free, quadrivalent (flucelvax) Unknown Completed [facility] COVID-19 [place] 18 & Over Vaccination Unknown Completed [facility] COVID-19 [place] 18 & Over Vaccination Unknown Completed [facility] Tdap Unknown Completed [facility] COVID-19 Pfizer 12 & Over Vaccination ([place]) Unknown Completed [facility] Pneumococcal Conjugate PCV 20 Unknown Completed [facility] Vital Signs Vital Name Observation Time Observation Value Comments S ource Systolic blood pressure 2023-09-20 14:43:00 116 mm[Hg] [facility] Diastolic blood pressure 2023-09-20 14:43:00 69 mm[Hg] [facility] Heart rate 2023-09-20 14:43:00 60 /min [facility] Body temperature 2023-09-20 14:43:00 36.67 Ariane [facility] Body height 2023-09-20 14:43:00 166.5 cm [facility] Body weight 2023-09-20 14:43:00 86.728 kg [facility] BMI 2023-09-20 14:43:00 31.29 kg/m2 [facility] Systolic blood pressure 2023-09-12 15:52:00 134 mm[Hg] [facility] Diastolic blood pressure 2023-09-12 15:52:00 77 mm[Hg] [facility] Heart rate 2023-09-12 15:52:00 67 /min [facility] Body temperature 2023-09-12 15:52:00 36.78 Ariane [facility] Body height 2023-09-12 15:52:00 166.4 cm [facility] Body weight 2023-09-12 15:52:00 87.544 kg [facility] BMI 2023-09-12 15:52:00 31.63 kg/m2 [facility] Systolic blood pressure 2023-07-20 19:55:00 142 mm[Hg] [facility] Diastolic blood pressure 2023-07-20 19:55:00 74 mm[Hg] [facility] Heart rate 2023-07-20 19:55:00 75 /min [facility] Body temperature 2023-07-20 19:55:00 36.89 Ariane [facility] Respiratory rate 2023-07-20 19:55:00 16 /min [facility] [facility] Body height 2023-07-20 19:55:00 166.4 cm [facility] Body weight 2023-07-20 19:55:00 87.998 kg [facility] BMI 2023-07-20 19:55:00 31.79 kg/m2 [facility] Systolic blood pressure 2023-03-01 15:10:00 139 mm[Hg] [facility] Diastolic blood pressure 2023-03-01 15:10:00 74 mm[Hg] [facility] Heart rate 2023-03-01 15:10:00 84 /min [facility] Body height 2023-03-01 15:10:00 166.4 cm [facility] Body weight 2023-03-01 15:10:00 86.637 kg [facility] BMI 2023-03-01 15:10:00 31.30 kg/m2 [facility] Body weight 2023-02-22 19:31:00 86.183 kg [facility] BMI 2023-02-22 19:31:00 31.14 kg/m2 [facility] Systolic blood pressure 2023-02-02 15:08:00 125 mm[Hg] [facility] Diastolic blood pressure 2023-02-02 15:08:00 77 mm[Hg] [facility] Heart rate 2023-02-02 15:08:00 82 /min [facility] Body temperature 2023-02-02 15:08:00 37.06 Ariane [facility] Body height 2023-02-02 15:08:00 166.4 cm [facility] Body weight 2023-02-02 15:08:00 86.183 kg [facility] BMI 2023-02-02 15:08:00 31.14 kg/m2 [facility] Oxygen saturation in Arterial blood by Pulse oximetry 2023-02-02 15:08:00 97 /min [facility] Systolic blood pressure 2023-01-25 15:17:00 115 mm[Hg] [facility] Diastolic blood pressure 2023-01-25 15:17:00 57 mm[Hg] [facility] Heart rate 2023-01-25 15:17:00 61 /min [facility] Body height 2023-01-25 15:17:00 165.1 cm [facility] Body weight 2023-01-25 15:17:00 85.73 kg [facility] BMI 2023-01-25 15:17:00 31.45 kg/m2 [facility] Oxygen saturation in Arterial blood by Pulse oximetry 2023-01-25 15:17:00 97 /min [facility] Systolic blood pressure 2022-06-10 21:15:00 117 mm[Hg] [facility] Diastolic blood pressure 2022-06-10 21:15:00 73 mm[Hg] [facility] Heart rate 2022-06-10 21:15:00 64 /min [facility] Body temperature 2022-06-10 21:15:00 36.39 Ariane [facility] Respiratory rate 2022-06-10 21:15:00 16 /min [facility] Body weight 2022-06-10 21:15:00 88.905 kg [facility] BMI 2022-06-10 21:15:00 32.62 kg/m2 [facility] Body height 2021-11-24 13:29:00 165.1 cm [facility] Body weight 2021-11-24 13:29:00 82.555 kg [facility] BMI 2021-11-24 13:29:00 30.29 kg/m2 [facility] BP Diastolic 2021-08-09 00:00:00 83 mm[Hg] [facility] Height 2021-08-09 00:00:00 66 [in_i] [facility] BMI (Body Mass Index) 2021-08-09 00:00:00 31.4 kg/m2 [facility] BP Systolic 2021-08-09 00:00:00 139 mm[Hg] [facility] Body Weight 2021-08-09 00:00:00 194.6 [lb_av] [facility] Systolic blood pressure 2021-03-23 15:11:00 110 mm[Hg] [facility] Diastolic blood pressure 2021-03-23 15:11:00 72 mm[Hg] [facility] Heart rate 2021-03-23 15:11:00 58 /min [facility] Body temperature 2021-03-23 15:11:00 36.22 Ariane [facility] Body height 2021-03-23 15:11:00 167.6 cm [facility] Body weight 2021-03-23 15:11:00 84.278 kg [facility] BMI 2021-03-23 15:11:00 29.99 kg/m2 [facility] Systolic blood pressure 2021-03-22 14:55:00 120 mm[Hg] [facility] Diastolic blood pressure 2021-03-22 14:55:00 78 mm[Hg] [facility] Heart rate 2021-03-22 14:55:00 58 /min [facility] Body temperature 2021-03-22 14:55:00 36.22 Ariane [facility] Respiratory rate 2021-03-22 14:55:00 16 /min [facility] Body height 2021-03-22 14:55:00 166.4 cm [facility] Body weight 2021-03-22 14:55:00 84.369 kg [facility] BMI 2021-03-22 14:55:00 30.48 kg/m2 [facility] Systolic blood pressure 2020-10-19 14:55:00 105 mm[Hg] [facility] Diastolic blood pressure 2020-10-19 14:55:00 67 mm[Hg] [facility] Heart rate 2020-10-19 14:55:00 59 /min [facility] Body temperature 2020-10-19 14:55:00 36.44 Ariane [facility] Respiratory rate 2020-10-19 14:55:00 16 /min [facility] Body weight 2020-10-19 14:55:00 87.091 kg [facility] BMI 2020-10-19 14:55:00 31.46 kg/m2 [facility] BP Systolic 2017-08-17 15:47:00 115 mm[Hg] Location: RUE; Position: Sitting [facility] BP Diastolic 2017-08-17 15:47:00 62 mm[Hg] Location: RUE; Position: Sitting [facility] Height 2017-08-17 15:47:00 65.5 [in_us] [facility] Weight 2017-08-17 15:47:00 204 [lb_av] [facility] Body Mass Index Calculated 2017-08-17 15:47:00 33.43 kg/m2 [facility] Heart Rate 2017-08-17 15:47:00 60 /min Quality: Normal [facility] BP Systolic 2017-08-01 08:11:00 132 mm[Hg] Location: RUE; Position: Sitting [facility] BP Diastolic 2017-08-01 08:11:00 68 mm[Hg] Location: RUE; Position: Sitting [facility] Weight 2017-08-01 08:11:00 205.375 [lb_av] [facility] Body Mass Index Calculated 2017-08-01 08:11:00 33.66 kg/m2 [facility] Heart Rate 2017-08-01 08:11:00 58 /min Location: R Brachial Artery; [facility] Respiration Rate 2017-08-01 08:11:00 18 /min Quality: Normal [facility] BP Systolic 2017-02-14 10:37:00 118 mm[Hg] Location: RUE; [facility] BP Diastolic 2017-02-14 10:37:00 73 mm[Hg] Location: RUE; [facility] Height 2017-02-14 10:37:00 65.5 [in_us] [facility] Heart Rate 2017-02-14 10:37:00 51 /min [facility] Respiration Rate 2017-02-14 10:37:00 16 /min Quality: Normal [facility] Procedures Procedure Date / Time Performed Performing Clinicia n Source POCT GLUCOSE 2023-09-20 14:47:00 Desirae Ramirez [facility] COMPREHENSIVE METABOLIC PANEL 2023-09-12 17:12[facility] 2023-09-12 17:12:00 [facility] ealth HEMOGLOBIN A1C 2023-09-12 17:12[facility]00 [facility] 2023-03-01 15:15:00 Send [facility] alth POCT GLYCOSYLATED HEMOGLOBIN (HGB A1C) 2021-03-22 [facility] 2021-03-22 15:07[facility]SE 2020-10-19 16:49:00 Send [facility] alth POCT GLYCOSYLATED HEMOGLOBIN (HGB A1C) 2020-10-19 16:49[facility] X[facility] SHOULDER MIN 2 VWS RIGHT [id number] 2017-09-29 00:00:00 [facility] [U] XRAY ELBOW MIN 3 VWS RIGHT [id number] 2017-09-29 00:00:00 [facility] [U] XRAY WRIST MIN 3 VWS RIGHT [id number] 2017-09-29 00:00:00 [facility] [U] XRAY HUMERUS MIN 2 VWS RIGHT [id number] 2017-09-29 00:00:00 [facility] Spine cervical w/wo contrast [id number] 2017-02-28 00:00:00 [facility] XRAY Chest 2 views [id number] 2017-02-14 00:00:00 [facility] [N] Carotid Bilateral [id number] 2017-02-14 00:00:00 [facility] XRAY Spine cervical 2 or 3 view [id number] 2017-02-14 00:00:00 [facility] Hyste[facility] En[facility] Start Date/Time End Date/Time Encounter Type Admission Type Attending Clinicians Care Facility Care Department Encounter ID Source 2022-08-03 17:52:26 Outpatient [facility] [id number] [facility] 2022-07-25 13:01:28 Outpatient [facility] [id number] [facility] 2022-07-19 04:28:15 Outpatient [facility] [id number] [facility] 2022-07-18 19:57:01 Outpatient [facility] [id number] [facility] 2022-06-23 08:44:43 Outpatient [facility] [id number] [facility] 2022-06-13 01:28:19 Outpatient [facility] [id number] [facility] 2022-06-12 17:10:26 Outpatient [facility] [id number] [facility] 2022-06-09 08:56:24 Outpatient [facility] [id number] [facility] 2022-04-19 13:55:31 Outpatient [facility] [id number] [facility] 2022-04-11 09:51:09 Outpatient [facility] [id number] [facility] 2021-03-23 09:47:27 Outpatient SIMEON VANEGAS [facility] [id number] [facility] 2021-03-23 09:46:32 Outpatient [facility] [id number] [facility] 2021-03-22 09:59:53 Outpatient FLORENCE PHANA [facility] [id number] [facility] 2023-12-21 09:00:00 2023-12-21 09:00:00 Outpatient DESIRAE RAMIREZ [facility] [id number] [facility] 2023-10-05 13:15:00 2023-10-05 13:15:00 Outpatient ROCHELLE MURRY [facility] [id number] [facility] 2023-09-29 10:00:00 2023-09-29 10:22:49 Outpatient [facility] [id number] [facility] 2023-09-20 09:40:00 2023-09-20 10:23:33 Office Visit Desirae Ramirez [facility] 1.2.840.114 350.1.13.58 9.2.7.2.686 [id number] [facility] 2023-09-12 10:40:00 2023-09-12 12:06:09 Office Visit Jonathan Syd [facility] [address] 1.2.840.114 350.1.13.58 9.2.7.2.686 [id number] [facility] 2023-07-20 15:00:00 2023-07-20 15:40:38 Office Visit Jonathan Syd [facility] [address] 1.2.840.114 350.1.13.58 9.2.7.2.686 [id number] [facility] 2023-05-25 00:00:00 2023-05-25 00:00:00 Outpatient RAULITO_L_D NU VFP VFP [id number] [facility] 2023-03-01 09:00:00 2023-03-01 09:00:00 Office Visit ASHLI PHAN [facility] [address] 1.2.840.114 350.1.13.58 9.2.7.2.686 [id number] [facility] 2023-02-22 13:15:00 2023-02-22 14:12:47 Office Visit Les Dickinson [facility] 1 1.2.840.114 350.1.13.58 9.2.7.2.686 [id number] [facility] 2023-02-15 09:30:00 2023-02-15 09:30:00 Outpatient DANIEL MUSTAFA [facility] [id number] [facility] 2023-02-02 09:30:00 2023-02-02 10:04:32 Office Visit Daniel Mustafa [facility] [address] 1.2.114 350.1.13.58 9.2.7.2.686 [id number] [facility] 2023-02-02 08:00:00 2023-02-02 08:49:29 Outpatient [facility] [id number] [facility] 2023-01-25 09:40:00 2023-01-25 09:49:50 Office Visit Simeon Vanegas [facility] 1..114 350.1.13.58 9.2.7.2.686 [id number] [facility] 2022-10-17 00:00:00 2022-10-17 00:00:00 Outpatient Smith_E_HOU _NP VFP VFP [id number] [facility] 2022-08-03 09:00:00 2022-08-03 09:00:00 Outpatient PATEL TEIXEIRA [facility] [id number] [facility] 2022-07-27 13:05:00 2022-07-27 13:05:00 External Contact LLUVIA MEREDITHSHANTAL EXT MSRDP LOCATION 1..114 350.1.13.58 9.2.7.2.686 [id number] [facility] 2022-06-10 15:40:00 2022-06-10 15:40:00 Office Visit ALESSIA THOMPSON [facility] [address] 1.2.114 350.1.13.58 9.2.7.2.686 [id number] [facility] 2022-04-29 07:56:00 2022-04-29 23:59:00 Outpatient STEPH MCNEIL [id number] 2022-04-20 09:20:00 2022-04-20 09:59:39 Office Visit Steph Mcneil [facility] 1.2.840.114 350.1.13.58 9.2.7.2.686 [id number] [facility] 2021-12-16 09:36:00 2021-12-16 14:06:00 [facility] [id number] [facility] 2021-12-16 10:15:00 2021-12-16 10:15:00 Outpatient ERICK VELASQUEZ [facility] [id number] [facility] 2021-12-16 00:00:00 2021-12-16 00:00:00 Nurse Triage Alyssa Robbins Kimberly [facility] 1.2.840.114 350.1.13.58 9.2.7.2.686 [id number] [facility] 2021-11-24 08:20:00 2021-11-24 08:56:33 Office Visit Steph Mcneil [facility] 1.2.840.114 350.1.13.58 9.2.7.2.686 [id number] [facility] 2021-08-09 06:22:00 2021-08-09 06:22:00 Outpatient Abraham_S VFP VFP [id number] [facility] e 2021-08-09 00:00:00 2021-08-09 00:00:00 Nurse Triage Maria Elena Mariscal Darlene [facility] 1..840.114 350.1.13.58 9.2.7.2.686 [id number] [facility] 2021-08-09 00:00:00 2021-08-09 00:00:00 MIGUELANGEL Vidal: [id number] [place] [address] , Ph. VFP [place] - [facility] - _DIAMOND_Christine conklin (JAROD) [id number] [facility] e 2021-05-11 00:00:00 2021-05-11 00:00:00 Telephone Peri Hillman Catrina [facility] 1.2.840.114 350.1.13.58 9.2.7.2.686 [id number] [facility] 2021-03-23 09:00:00 2021-03-23 09:44:34 Office Visit LogSimeon alejo [facility] 1.2.840.114 350.1.13.58 9.2.7.2.686 [id number] [facility] 2021-03-22 09:00:00 2021-03-22 09:59:54 Office Visit Ashli Phan [facility] 1.2.840.114 350.1.13.58 9.2.7.2.686 [id number] [facility] 2021-03-22 00:00:00 2021-03-22 00:00:00 Patient Outreach Kannan Tatum BrunnerTatum [facility] 1.2.840.114 350.1.13.58 9.2.7.2.686 [id number] [facility] 2021-01-08 00:00:00 2021-01-08 00:00:00 Refill Simeon Vanegas [facility] [address] [facility] 1.2.840.114 350.1.13.58 9.2.7.2.686 [id number] [facility] 2020-11-18 00:00:00 2020-11-18 00:00:00 Refill Ashli Phan [facility] 1.2.840.114 350.1.13.58 9.2.7.2.686 [id number] [facility] 2020-10-20 00:00:00 2020-10-20 00:00:00 Refill Ashli Phan [facility] 1.2.840.114 350.1.13.58 9.2.7.2.686 [id number] [facility] 2020-10-19 09:20:56 2020-10-19 11:01:47 Office Visit Ashli Phan [facility] 1.2.840.114 350.1.13.58 9.2.7.2.686 [id number] [facility] 2020-04-30 07:18:00 2020-04-30 23:59:00 Outpatient LAURA BYRD [facility] [id number] [facility] 2017-09-29 13:00:00 2017-09-29 13:00:00 Appointmen t; STEFANIA NIX M.D. MANSOUR, ASHTON, M.D. [facility] [id number] [facility] 2017-08-17 16:00:00 2017-08-17 16:00:00 Appointmen t; KAYLEE CARLSON M.D.|PHD KAYLEE CARLSON M.D.|PHD [facility]iatry [id number] [facility] 2017-08-01 08:00:00 2017-08-01 08:00:00 Appointmen t; SIMEON VANEGAS M.D. LOGHIN, CATALIN, M.D. [facility] Card[facility] [id number] [facility] 2017-04-06 15:00:00 2017-04-06 15:00:00 Appointmen t; KAYLEE CARLSON M.D.|PHD KAYLEE CARLSON M.D.|PHD [facility] Psychiatry [id number] [facility] 2017-03-07 08:30:00 2017-03-07 08:30:00 Appointmen t; KAYLEE CARLSON M.D.|PHD KAYLEE CARLSON M.D.|PHD [facility] [id number] [facility] 2017-02-22 14:00:00 2017-02-22 14:00:00 Appointmen t; ERNESTO, HEBERT OROZCO, ECHO [facility] Non-Invasiv e [id number] [facility] 2017-02-14 10:20:00 2017-02-14 10:20:00 Appointmen t; SIMEON VANEGAS M.D. LOGHIN, CATALIN, M.D. [facility] [id number] [facility] 2016-12-09 14:45:00 2016-12-09 14:45:00 Appointmen t; ARIELLE MANCILLA M.D. ROGGE, MEGAN, M.D. [facility] [id number] [facility] 2016-12-09 14:45:00 2016-12-09 14:45:00 Appointmen t; YURY ARIZA M.D. SUAREZ, ANDREA, M.D. [facility] [id number] [facility] 2016-12-02 14:30:00 2016-12-02 14:30:00 Appointmen t; ARIELLE MANCILLA M.D. ROGGE, MEGAN, M.D. [facility] [id number] [facility] 2016-11-25 10:00:00 2016-11-25 10:00:00 Appointmen t; SIMEON VANEGAS M.D. LOGHIN, CATALIN, M.D. [facility] [id number] [facility] 2016-11-24 08:00:00 2016-11-24 08:00:00 Appointmen t; KAYLEE CARLSON M.D.|PHD KAYLEE CARLSON M.D.|PHD [facility] [id number] [facility] 2016-10-28 14:45:00 2016-10-28 14:45:00 Appointmen t; YURY ARIZA M.D. SUAREZ, ANDREA, M.D. [facility] [id number] [facility] 2016-08-10 09:30:00 2016-08-10 09:30:00 Appointmen t; DEMETRICE THOMPSON M.D. NGUYEN, TONY, M.D. [facility] [id number] [facility] 2016-08-09 16:30:00 2016-08-09 16:30:00 Appointmen t; KAYLEE CARLSON M.D.|PHD KAYLEE CARLSON M.D.|PHD [facility] [id number] [facility] 2016-05-12 16:30:00 2016-05-12 16:30:00 Appointmen t; KAYLEE CARLSON M.D.|PHD KAYLEE CARLSON M.D.|PHD [facility] [id number] [facility] 2016-02-26 09:40:00 2016-02-26 09:40:00 Appointmen t; SIMEON VANEGAS M.D. LOGHIN, CATALIN, M.D. [facility] [id number] [facility] 2016-02-16 16:30:00 2016-02-16 16:30:00 Appointmen t; KAYLEE CARLSON M.D.|PHD KAYLEE CARLSON M.D.|PHD [facility] [id number] [facility] 2015 16:30:00 2015 16:30:00 Appointmen t; KAYLEE CARLSON M.D.|PHD KAYLEE CARLSON M.D.|PHD [facility] [id number] [facility] 2015-09-17 16:30:00 2015-09-17 16:30:00 Appointmen t; KAYLEE CARLSON M.D.|PHD KAYLEE CARLOSN M.D.|PHD [facility] [id number] [facility] 2015-09-15 08:20:00 2015-09-15 08:20:00 Appointmen t; SIMEON VANEGAS M.D. LOGHIN, CATALIN, M.D. [facility] [id number] [facility] 2015-08-13 15:00:00 2015-08-13 15:00:00 Appointmen t; KAYLEE CARLSON M.D.|PHD KAYLEE CARLSON M.D.|PHD [facility] [id number] [facility] 2015-08-07 08:45:00 2015-08-07 08:45:00 Appointmen t; PATRICIA ANDREW M.D. SZETO, JOCELYN, M.D. [facility] [id number] [facility] 2015-07-16 15:30:00 2015-07-16 15:30:00 Appointmen t; KAYLEE CARLSON M.D.|PHD KAYLEE CARLSON M.D.|PHD [facility] [id number] [facility] 2015-07-14 16:00:00 2015-07-14 16:00:00 Appointmen t; PATRICIA ANDREW M.D. SZETO, JOCELYN, M.D. [facility] [id number] [facility] 2015-06-23 15:40:00 2015-06-23 15:40:00 Appointmen t; PATRICIA ANDREW M.D. SZETO, JOCELYN, M.D. [facility] [id number] [facility] 2015-06-11 09:30:00 2015-06-11 09:30:00 Appointmen t; KAYLEE CARLSON M.D.|PHD KAYLEE CARLSON M.D.|PHD [facility] [id number] [facility] 2015-05-15 10:00:00 2015-05-15 10:00:00 Appointmen t; SIMEON VANEGAS M.D. LOGHIN, CATALIN, M.D. [facility] [id number] [facility] 2015-05-05 15:30:00 2015-05-05 15:30:00 Appointmen t; KAYLEE CARLSON M.D.|PHD KAYLEE CARLSON M.D.|PHD [facility] [id number] [facility] 2015-05-01 10:00:00 2015-05-01 10:00:00 Appointmen t; SIMEON VANEGAS M.D. LOGHIN, CATALIN, M.D. [facility] [id number] [facility] 2015-04-24 08:20:00 2015-04-24 08:20:00 Appointmen t; NITO ZELAYA M.D. WILLIAMS, KEVIN, M.D. [facility] [id number] [facility] 2015-04-02 15:30:00 2015-04-02 15:30:00 Appointmen t; KAYLEE CARLSON M.D.|PHD KAYLEE CARLSON M.D.|PHD [facility] [id number] [facility] 2015-03-24 08:35:00 2015-03-24 08:35:00 Appointmen t; NITO ZELAYA M.D. WILLIAMS, KEVIN, M.D. [facility] [id number] [facility] 2015-03-06 15:30:00 2015-03-06 15:30:00 KAYLEE Jackson M.D.|PHD KAYLEE CARLSON M.D.|PHD [facility] [id number] [facility] Results Test Description Test Time Test Comments Results Result Co mments Source [facility] [id number] 10:42:28* Test Item Value Reference Range Interpretation Comme nts Cholesterol (test code = 2093-3) 257 See_Comment H [Automated messa ge] The system which generated this result transmitted reference range: <200 MG/DL. The reference range was not used to interpret this result as normal/abnormal. TRIGLYCERIDES (test code = 2571-8) 143 See_Comment [Automated messa ge] The system which generated this result transmitted reference range: <150 MG/DL. The reference range was not used to interpret this result as normal/abnormal. HDL CHOLESTEROL (test code = 2085-9) 53 See_Comment [Automated messa ge] The system which generated this result transmitted reference range: >39 MG/DL. The reference range was not used to interpret this result as normal/abnormal. LDL-CHOLESTEROL (test code = 30574-7) 175 See_Comment H NOTE: CALCULATED LDL IS BASED ON ELENA-CHAPA METHOD WHICHINCLUDES ADJUSTABLE TRIGLYCERIDE:VLDL CHOLESTEROL RATIO.THIS FACTOR VARIES BY MEASURED TRIGLYCERIDE AND NON-HDLCHOLESTEROL CONCENTRATIONS WITH INCREASED CALCULATED LDL SEENIN HIGHER TRIGLYCERIDE OR LOWER NON-HDL SPECIMENS. FOR MOREINFORMATION, SEE CLIENT ANNOUNCEMENT AT [email or web address] [Automated message] The system which generated this result transmitted reference range: <100 MG/DL. The reference range was not used to interpret this result as normal/abnormal. LDL/HDL RATIO (test code = 91484-9) 3.30 See_Comment H Testing Performe d At:C[facility]: ?[facility], [address] [place] [id number] Director: April Stanley M.D., [facility] #: [id number] [Automated message] The system which generated this result transmitted reference range: <3.22 RATIO. The reference range was not used to interpret this result as normal/abnormal. Lab Interpretation (test code = 20075-3) [facility]normal [facility] [id number] 10:42:28* Test Item Value Reference Range Interpretation Comme nts GLUCOSE (test code = 2345-7) 144 70-99 H BUN (test code = 3094-0) 13 8-23 CREATININE (test code = 2160-0) 0.81 0.60-1.30 eGFR If NonAfricn Am (test code = 09189-7) 81 See_Comment [Automated message] The system which generated this result transmitted reference range: >60 ML/MIN/1.73. The reference range was not used to interpret this result as normal/abnormal. BUN/CREATININE RATIO (test code = 3097-3) 16 6-28 SODIUM (test code = 2951-2) 141 133-146 POTASSIUM (test code = 2823-3) 4.8 3.5-5.4 CHLORIDE (test code = 2075-0) 100 95-107 CARBON DIOXIDE (test code = 2027-) 28 19-31 CALCIUM (test code = 11047-8) 10.1 8.5-10.5 PROTEIN, TOTAL (test code = 2885-2) 7.2 6.1-8.3 ALBUMIN (test code = 82674-7) 4.8 3.5-5.2 GLOBULIN (test code = 60513-1) 2.4 1.9-3.7 A/G RATIO (test code = 1759-0) 2.0 1.0-2.6 BILIRUBIN, TOTAL (test code = 1975-2) 0.6 See_Comment [Automated messa ge] The system which generated this result transmitted reference range: <=1.2 MG/DL. The reference range was not used to interpret this result as normal/abnormal. ALKALINE PHOSPHATASE (test code = 6768-6) 84 U/L 40-140 AST (test code = 1920-8) 25 U/L 9-40 ALT (test code = 1742-6) 37 U/L 5-40 Testing Performed At:CPL: ?[facility], [address] [place] [address], [place] [address]Jnlwcnotjz Director: April Stanley M.D., [place] #: [id number] Lab Interpretation (test code = 21572-1) Abnormal [place] [facility] [id number] 10:21:26* Test Item Value Reference Range Interpretation Comme [facility] HEMOGLOBIN A1c (test code = 4548-4) 8.4 % 4.2-5.6 H ? [employer] GUIDELINES FOR HGB A1C: ?PREDIABETES/INCREASED RISK . . . . . . . 5.7-6.4% ?DIAGNOSIS OF DIABETES ?. . . . . . . . . >=6.5% ?WITH CONFIRMATION OR APPROPRIATE SYMPTOMS ? ? NOTE: ASSAY MAY BE AFFECTED BY HEMOGLOBINOPATHIES (SICKLE ? ? CELL ANEMIA, S-C DISEASE, OTHERS) OR ARTIFICIALLY LOWERED BY ? ? DECREASED RED CELL SURVIVAL (HEMOLYTIC ANEMIAS, BLOOD LOSS, ? ? ETC.). ?CONSIDER ALTERNATE TESTING OR LABORATORY CONSULTATION. Testing Performed At:CPL: ?[facility], [address] [place], [place] [address]Laboratory Director: April Stanley M.D., [facility] #: [id number] Lab Interpretation (test code = 92892-5) Abnormal [facility] glucose manually [id number] 15:15:00* Test Item Value Reference Range Interpretation Comme [facility] Glucose Blood, POC (test cod e = [id number]) 98 mg/dL 70-180 [facility] glycosylated hemoglobin (Hb A1C)2021-03-22 15:25:00* Test Item Value Reference Range Interpretation Comme [facility] Hemoglobin A1C (test code = 4548-4) 6.5 % 4.0-6.0 A Lab Interpretation (test cod e = 90811-9) Abnormal [facility] [id number] 15:07:00* Test Item Value Reference Range Interpretation Comme [facility] Glucose Blood, POC (test cod e = 0579551) 120 mg/dL 70-180 Lab Interpretation (test cod e = 53521-3) Normal [facility] [id number] 16:49:00* Test Item Value Reference Range Interpretation Comme [facility] Glucose Blood, POC (test cod e = 5193825) 113 mg/dL 70-180 Lab Interpretation (test cod e = 36582-7) Normal [facility] glycosylated hemoglobin (Hb A1C)2020-10-19 16:49:00* Test Item Value Reference Range Interpretation Comme nts Hemoglobin A1C (test code = 4548-4) Lab Interpretation (test cod e = 73958-6) Normal [facility][U] XRAY HUMERUS MIN 2 VWS RIGHT [id number] 13:41:00Images acquired, not reported on this accession number.[facility][U] XRAY ELBOW MIN 3 VWS RIGHT [id number] 13:34:00Images acquired, not reported on this accession number.[facility][U] XRAY SHOULDER MIN 2 VWS RIGHT [id number] 13:34:00Images acquired, not reported on this accession number.[facility][U] XRAY WRIST MIN 3 VWS RIGHT [id number] 13:34:00Images acquired, not reported on this accession number.[facility]ammo Screen Steve w elyssa [id number] 2017-08-29 08:04:00BILATERAL DIGITAL SCREENING MAMMOGRAM 3D/2D WITH CAD: 08/29/2017CLINICAL: /Screen. Current study wasevaluated with a Computer Aided Detection (CAD) system. COMPARISON:Comparison is made to exams dated: 08/26/2016 mammogram, 12/25/2014mammogram, 06/18/2014 mammogram, and 06/06/2014 mammogram - [facility]. TECHNIQUE: Digital Breast Tomosynthesis was performed and utilized forInterpretation. Current study was also evaluated with a Computer AidedDetection (CAD) system.FINDINGS:There are scattered fibroglandular densities in both breasts. There is a biopsy clip in the right breast. No significant masses, calcifications, or other findings are seen in eitherbreast. There has been no significant interval change.IMPRESSION: BENIGNRECOMMENDATION:There is no mammographic evidence of malignancy. A 1 yearscreening mammogram is recommended.(08/30/2018) This exam was interpreted [id number] at [facility] [place]. Professional services are provided by [facility].Jyothi Leroy M.D. to/penrad:08/30/2017 10:28:29 [employer](s): RT Boni(R)(M), [facility] BCletter sent: BI-RADS 1/2 Mammogram BI- RADS: 2 Benign--Read by: Jyothi Leroy MDDictated Date/time: 08/30/17 10:28Electronically Signed by: Jyothi Leroy MD 08/30/1809:28[facility] CBC (INCLUDES DIFF/PLT)2017-08-01 09:14:01* Test Item Value Reference Range Interpretation Comme nts WBC (test code = 6690-2) 4.8 {K/CMM} 3.7-10.4 RBC (test code = 789-8) 4.67 {M/CMM} 4.20-5.40 Hgb (test code = 718-7) 14.2 g/dl 12.0-16.0 Hct (test code = 28454-0) 40.8 % 36.0-48.0 MCV (test code = 787-2) 87.4 fL 80.0-98.0 MCH (test code = 785-6) 30.3 pg 27.0-31.0 MCHC (test code = 786-4) 34.7 g/dl 32.0-36.0 RDW (test code = 788-0) 14.2 % 11.5-14.5 Platelet (test code = 23951-8) 153 {K/CMM} 133-450 Mean Platelet Volume (test c ode = 19114-1) 9.5 fL 7.4-10.4 [facility]] [id number] 09:14:01* Test Item Value Reference Range Interpretation Comme nts Segmented Neutrophils (test code = 62694-7) 56.5 % 45.0-75.0 Monocytes (test code = 33880-0) 8.6 % 2.0-12.0 Lymphocytes (test code = 76472-9) 33.1 % 20.0-40.0 Eosinophils (test code = 03276-6) 1.1 % 0.0-4.0 Basophils (test code = 706-2) 0.7 % 0.0-1.0 Segs-Bands # (test code = 51525-1) 2.7 {K/CMM} 1.5-8.1 Lymphocytes # (test code = 26554-2) 1.6 {K/CMM} 1.0-5.5 Monocytes # (test code = 56972-7) 0.4 {K/CMM} 0.0-0.8 Eosinophils # (test code = 29617-6) 0.1 {K/CMM} 0.0-0.5 [facility]] CMP [id number] 09:14:01* Test Item Value Reference Range Interpretation Comme nts Sodium Level (test code = 2951-2) 139 {mEq/l} 135-145 Potassium Level (test code = 2823-3) 4.1 {mEq/l} 3.5-5.1 Chloride Level (test code = 5-0) 103 {mEq/l} 95-109 Carbon Dioxide (test code = 2027-9) 28 {mEq/l} 24-32 AGAP (test code = 84430-8) 12.1 {mEq/l} 10.0-20.0 Glucose Lvl; Above High Threshold (test code = 2345-7) 104 mg/dl 70-99 Adult reference range values reflect the clinical guidelinesof the Canadian Diabetes Association. Creatinine Lvl (test code = 2160-0) 0.70 mg/dl 0.50-1.40 Blood Urea Nitrogen (test code = 3094-0) 17 mg/dl 7-22 BUN/Creatinine Ratio (test code = 3097-3) 24 6-25 Total Protein (test code = 2885-2) 7.4 g/dl 6.4-8.4 Albumin Lvl (test code = 1751-7) 4.4 g/dl 3.5-5.0 Globulin (test code = 68229-5) 3.0 g/dl 2.7-4.2 A/G Ratio (test code = 1759-0) 1.5 0.7-1.6 Calcium Level Total (test code = 76621-4) 9.0 mg/dl 8.5-10.5 ALT (test code = 1743-4) 41 u/l 0-65 AST (test code = 90185-6) 21 u/l 0-37 Bili Total (test code = 1974-) 0.5 mg/dl 0.2-1.3 Alk Phos (test code = 1783-0) 85 u/l 39-136 eGFR (test code = 71282-4) 95 {ML/MIN/1.7} The eGFR is calculat ed using the CKD-EPI formula. In most young, healthyindividuals the eGFR will be >90 mL/min/1.73m2. The eGFR declines with age. AneGFR of 60-89 may be normal in some populations, particularly the elderly, forwhom the CKD-EPI formula has not been extensively validated. Use of the eGFR isnot recommended in the following populations:Individuals with unstable creatinine concentrations, including patients and those with serious co-morbid conditions.Patients with extremes in muscle mass or diet.The data above are obtained from the National Kidney Disease Education Program(NKDEP) which additionally recommends that when the eGFR is used in patientswith extremes of body mass index for purposes of drug dosing, the eGFR shouldbe multiplied by the estimated BMI. [facility]] LIPID [id number] 09:14:01* Test Item Value Reference Range Interpretation Comme nts Chol; Above High Threshold ( test code = 2093-3) 220 mg/dl <=199 Trig (test code = 2571-8) 111 mg/dl <=149 HDL Cholesterol; Below Low Threshold (test code = 2085-9) 59 mg/dl >=61 CHD Risk; Below Low Threshol d (test code = 15778-4) 3.73 3.90-5.80 LDL; Above High Threshold (t est code = 37173-2) 139 mg/dl <=99 VLDL (test code = VLDL) 22 [facility]] TSH, 3RD GENERATION W/REFLEX TO [id number] 09:14:01* Test Item Value Reference Range Interpretation Comme nts TSH (test code = 37840-0) 1.310 {uIU/ml} 0.360-3.740 [facility]] URINALYSIS, [id number] 09:14:01* Test Item Value Reference Range Interpretation Comme nts UA Turbidity (test code = 67992-4) Clear Clear UA Spec Grav (test code = 5810-7) 1.015 <=1.030 UA pH (test code = 5803-2) 5.0 5.0-8.0 UA Protein (test code = 20577-0) Negative Negative UA Glucose (test code = 11285-0) Negative Negative UA Ketones (test code = 13987-9) Negative Negative UA Bili (test code = 5770-3) Negative Negative UA Blood (test code = 5794-3) Negative Negative UA Nitrite (test code = 5802-4) Negative Negative UA Leuk Est (test code = 5799-2) Negative Negative UA RBC (test code = 48747-2) 1 {/HPF} 0-2 UA WBC (test code = 12454-5) <1 0-5 UA Mucus (test code = 8247-9) Few None Seen UA Sq Epi (test code = 49840-1) None Seen UA Color (test code = 5778-6) Ltyellow UROBILINOGEN (test code = 94427-9) <=1.0 0.1-1.0 [facility]] HEMOGLOBIN [id number] 09:14:01* Test Item Value Reference Range Interpretation Comme nts Hemoglobin A1c; Above High T hreshold (test code = 4548-4) 6.7 % <=5.6 [facility] cervical [facility]/wo contrast [id number] 14:45:00EXAM: MRI CERVICAL SPINE WITHOUT CONTRASTDATE: 03/06/2017 at 1505 hoursINDICATION: Pain in posterior neck and upper chest x approximately 6 months,COMPARISON: Normal cervical spine radiographs of 02/14/2017.TECHNIQUE: Multiplanar, multisequence noncontrast MR imaging of the cervicalspine.IV contrast: 19 mL of DotaremFINDINGS:The vertebrae are normal in shape and alignment. The discs are desiccated butnormal in height. There is spinal canal stenosis is present. C4-C5 and C6-C7,further described below. The cervical cord is minimally distended at C4-C5 isslightly deformed at C6-C7. No myelomalacia is evident. The cerebellar tonsilsare normal in position above the level of the foramen magnum. Normal paraspinalsoft tissues. Disc levels not mentioned below are deemed normal.INDIVIDUAL LEVELS:C4-C5: Focal left central disc protrusion minimally deforming the cord (consider image 11 of series 9). Minimal epidural enhancement on the leftreflecting reactive granulation tissue. No myelomalacia. No nerve rootdisplacement.. No foraminal stenosis.C6-C7: Broad based bulging disc on the left indenting the thecal sac andminimally deforming the cord (consider image 18 of series 9). Minimal epiduralenhancement on the left reflecting reactive granulation tissue. Nomyelomalacia. No nerve root displacement. No foraminal stenosis.. IMPRESSION: 1. Small disc protrusion at C4-C5 on the left indenting the cord.2. Asymmetrically bulging posterior annulus at C6-C7 on the left.3. Reactive enhancing granulation tissue along the disc deformities.4. No myelomalacia. No foraminal stenosis.--Read by: Won Akbar MDDictated Date/time: 03/06/17 16:55Electronically Signed by: Won Akbar MD 03/07/1713 :17FINAL REPORTUT PhysiciansXRAY Chest 2 views [id number] 12:26:00EXAM: XR CHEST 2 VIEWSDATE: 02/14/2017 12:13 PM CSTINDICATION: R05 Cough - coughCOMPARISON: 06/24/2011TECHNIQUE: PA and lateral chest radiographsFINDINGS: Minimal linear scarring is seen in the right middle lobe. No otherlung parenchymal or pleural abnormalities are seen. Yoli and pulmonaryvasculature are normal. Cardiomediastinal silhouette is normal in appearance. No acute bony abnormality is identified.IMPRESSION: No acute cardiopulmonary abnormality. Minimal linear scarring theright middle lobe.--Read by: Bravo Lindsay MDDictated Date/time: 02/14/17 12:30Electronically Signed by: Bravo Lindsay MD 02/15/1712:30FINAL REPORTUT PhysiciansXRAY Spine cervical 2 or 3 view [id number] 12:26:00EXAM: XR CERVICAL SPINE 2 VIEWSDATE: 02/14/2017 12:14 PM CSTINDICATION: M54.10 Radiculopathy, site unspecified - painCOMPARISON: None.TECHNIQUE: AP and lateral views of the cervical spine.UT SECTION: MSKFINDINGS: Cervical spine is visualized to the cervicothoracic junction on thelateral projection.Vertebral body heights, disc heights and alignment areoverall preserved. Small marginal osteophytesare present. No facet oruncovertebral arthropathy. Degenerative changes are present at the atlantoax ialjoint.No prevertebral or paraspinous soft tissue abnormality is identified.IMPRESSION: No significant osseous or joint abnormality.--This report was dictated by a Stopper Grinder/Fellow. I havepersonallyreviewed the images aswell as the Resident's interpretation and agree with the findings.Read by: Bruce Aponte DO Resident: Calixto Aponte DODictated Date/time: 02/14/17 17:32Electronically Signed by: Ronak Mayberry MD 02/14/1717:59FINAL [facility]PORT[facility]] CBC (INCLUDES DIFF/PLT)2017-02-14 11:30:01* Test Item Value Reference Range Interpretation Comme nts WBC (test code = WBC) 4.8 {K/CMM} 3.7-10.4 RBC (test code = RBC) 4.95 {M/CMM} 4.20-5.40 Hgb (test code = 76798-3) 14.5 g/dl 12.0-16.0 Hct (test code = 4544-3) 43.5 % 36.0-48.0 MCV (test code = MCV) 87.9 fL 80.0-98.0 MCH (test code = MCH) 29.4 pg 27.0-31.0 MCHC (test code = MCHC) 33.5 g/dl 32.0-36.0 RDW (test code = RDW) 13.7 % 11.5-14.5 Platelet (test code = 777-3) 164 {K/CMM} 133-450 Mean Platelet Volume (test c ode = Mean Platelet Volume) 9.1 fL 7.4-10.4 [facility]] [id number] 11:30:01* Test Item Value Reference Range Interpretation Comme nts Segmented Neutrophils (test code = 45442-6) 56.8 % 45.0-75.0 Monocytes # (test code = 14020-6) 0.4 {K/CMM} 0.0-0.8 Lymphocytes (test code = Lymphocytes) 33.7 % 20.0-40.0 Eosinophils (test code = 95355-8) 0.7 % 0.0-4.0 Basophils (test code = 61684-0) 0.6 % 0.0-1.0 Segs-Bands # (test code = 70062-3) 2.7 {K/CMM} 1.5-8.1 Lymphocytes # (test code = 31844-0) 1.6 {K/CMM} 1.0-5.5 [facility] CMP [id number] 11:30:01* Test Item Value Reference Range Interpretation Comme nts Sodium Level (test code = Sodium Level) 139 {mEq/l} 135-145 Potassium Level (test code = Potassium Level) 4.1 {mEq/l} 3.5-5.1 Chloride Level (test code = Chloride Level) 104 {mEq/l} 95-109 Carbon Dioxide (test code = Carbon Dioxide) 27 {mEq/l} 24-32 AGAP (test code = AGAP) 12.1 {mEq/l} 10.0-20.0 Glucose Lvl (test code = Glucose Lvl) 89 mg/dl 70-99 Adult reference range values reflect the clinical guidelinesof the [employer] Diabetes Association. Creatinine Lvl (test code = Creatinine Lvl) 0.80 mg/dl 0.50-1.40 Blood Urea Nitrogen (test code = Blood Urea Nitrogen) 15 mg/dl 7-22 BUN/Creatinine Ratio (test code = BUN/Creatinine Ratio) 19 6-25 Total Protein (test code = 66866-9) 7.6 g/dl 6.4-8.4 Albumin Lvl (test code = 1751-7) 4.0 g/dl 3.5-5.0 Globulin (test code = Globulin) 3.6 g/dl 2.7-4.2 A/G Ratio (test code = A/G Ratio) 1.1 0.7-1.6 Calcium Level Total (test code = Calcium Level Total) 9.3 mg/dl 8.5-10.5 ALT (test code = 1742-6) 45 u/l 0-65 AST (test code = 1916-6) 26 u/l 0-37 Bili Total (test code = 70064-4) 0.5 mg/dl 0.2-1.3 Alk Phos (test code = 1783-0) 71 u/l 39-136 eGFR (test code = eGFR) 81 {ML/MIN/1.7} The eGFR is calculat ed using the CKD-EPI formula. In most young, healthyindividuals the eGFR will be >90 mL/min/1.73m2. The eGFR declines with age. AneGFR of 60-89 may be normal in some populations, particularly the elderly, forwhom the CKD-EPI formula has not been extensively validated. Use of the eGFR isnot recommended in the following populations:Individuals with unstable creatinine concentrations, including patients and those with serious co-morbid conditions.Patients with extremes in muscle mass or diet.The data above are obtained from the National Kidney Disease Education Program(NKDEP) which additionally recommends that when the eGFR is used in patientswith extremes of body mass index for purposes of drug dosing, the eGFR shouldbe multiplied by the estimated BMI. [facility]] LIPID [id number] 11:30:01* Test Item Value Reference Range Interpretation Comme nts Chol (test code = Chol) 499 mg/dl <=199 Trig (test code = 2571-8) 140 mg/dl <=149 HDL Cholesterol (test code = HDL Cholesterol) 55 mg/dl >=61 CHD Risk (test code = CHD Risk) 9.07 3.90-5.80 LDL (test code = LDL) 416 mg/dl <=99 VLDL (test code = VLDL) 28 [facility]] TSH, 3RD GENERATION W/REFLEX TO [id number] 11:30:01* Test Item Value Reference Range Interpretation Comme nts TSH (test code = 82485-7) 1.120 {uIU/ml} 0.360-3.740 [facility]] URINALYSIS, [id number] 11:30:01* Test Item Value Reference Range Interpretation Comme nts UA Turbidity (test code = 13438-0) Clear Clear UA Spec Grav (test code = 2965-2) 1.015 <=1.030 UA pH (test code = 2756-5) 5.0 5.0-8.0 UA Protein (test code = 74646-4) Negative Negative UA Glucose (test code = 2349-9) Negative Negative UA Ketones (test code = 27457-6) Negative Negative UA Bili (test code = 81285-1) Negative Negative UA Blood; Abnormal (test cod e = 798-9) Small Negative A UA Nitrite (test code = 24700-4) Negative Negative UA Leuk Est; Abnormal (test code = 73003-2) Small Negative A UA RBC (test code = 02773-8) <1 0-2 UA WBC (test code = 21945-9) 1 {/HPF} 0-5 UA Mucus (test code = 23061-2) Few None Seen UA Sq Epi (test code = 25484-3) Occasional Few UA Color (test code = 29748-9) Ltyellow UROBILINOGEN (test code = 42351-9) <=1.0 0.1-1.0 [facility]] HEMOGLOBIN [id number] 11:30:01* Test Item Value Reference Range Interpretation Comme nts Hemoglobin A1c; Above High T hreshold (test code = 4548-4) 6.2 % <=5.6 [facility]"
[2023-12-05] MEDS ORDERED: MUPIROCIN 2% OINT 22GM TUBE TOP ONE (13:37)
[2023-12-05] MEDS ORDERED: KETOROLAC 30 MG/ML INJ ONE (13:37)
[2023-12-05] MEDS ORDERED: HYDROCODONE/APAP 7.5/325 MG TAB ONE (13:37)
[2023-12-05] MEDS ORDERED: DOXYCYCLINE 100 MG CAP PO ONE (13:37)
--- NOTE | 2023-12-05 13:37 | RAD REPORT ---
EXAMINATION: Tib Fib Left CLINICAL INDICATION: Female, 68 years old. [facility] MAIN Pain;Swelling Bed Name: 19 TECHNIQUE: 2 view radiograph of the left tibia and fibula were obtained. COMPARISON: No prior exam. FINDINGS: No evidence of fracture or dislocation. Normal alignment. No suspicious focal osseous lesio n. Mild knee degenerative changes with marginal spurring at the patellar articular surface. Mild enthesopathy of the quadriceps tendon attachment. Soft tissues are unremarkable. IMPRESSION: No acute or significant abnormalities. Mild knee joint degenerative changes.
--- NOTE | 2023-12-05 13:38 | EDPHYS ---
Physician Documentation [facility] Name: Ryanne Diamond Age: 68 yrs Sex: Female : 1955 Arrival Date: 12/05/2023 Time: 12:25 Bed 19 Private MD: ED Physician Meir Burks HPI: 12/04 13:32 This 68 yrs old Female presents to ER via Wheelchair with complaints of fish osiel sting to left leg. 13:32 The patient presents with decreased range of motion, a laceration, pain, swelling, osiel tenderness. The complaints affect the lateral aspect of left knee. Context: The problem was sustained SURF. Onset: The symptoms/episode began/occurred just prior to arrival. Modifying factors: The symptoms are alleviated by elevating leg, remaining still, the symptoms are aggravated by movement, weight bearing. Associated signs and symptoms: Pertinent positives: swelling, of the left leg. Severity of symptoms: At their worst the symptoms were moderate, in the emergency department the symptoms are unchanged. The patient has not experienced similar symptoms in the past. Historical: - Allergies: 12:34 Codeine; ph 12:34 Codeine; ll1 - PMHx: 12:34 Diabetes mellitus; ph 12:34 Diabetes mellitus; ll1 - PSHx: 12:34 hysterectomy; ll1 - Immunization history:: Adult Immunizations unknown, Adult Immunizations up to date, Last tetanus immunization: < 5 years ago. - Infectious Disease History:: Denies. - Social history:: Smoking status: Patient denies any tobacco usage or history of. Smoking status: Patient denies any tobacco usage or history of. - Family history:: not pertinent. ROS: 13:32 Constitutional: Negative for fever, chills, and weight loss, Eyes: Negative for injury, osiel pain, redness, and discharge, ENT: Negative for injury, pain, and discharge, Neck: Negative for injury, pain, and swelling, Cardiovascular: Negative for chest pain, palpitations, and edema, Respiratory: Negative for shortness of breath, cough, wheezing, and pleuritic chest pain, Abdomen/GI: Negative for abdominal pain, nausea, vomiting, diarrhea, and constipation, Back: Negative for injury and pain, : Negative for injury, bleeding, discharge, and swelling, Neuro: Negative for headache, weakness, numbness, tingling, and seizure, Psych: Negative for depression, anxiety, suicide ideation, homicidal ideation, and hallucinations, Allergy/Immunology: Negative for hives, rash, and allergies, Endocrine: Negative for neck swelling, polydipsia, polyuria, polyphagia, and marked weight changes, 13:32 MS/extremity: Positive for erythema, pain, puncture, of the left leg, Exam: 13:32 Constitutional: This is a well developed, well nourished patient who is awake, alert, osiel and in no acute distress. Head/Face: Normocephalic, atraumatic. Eyes: Pupils equal round and reactive to light, extra-ocular motions intact. Lids and lashes normal. Conjunctiva and sclera are non-icteric and not injected. Cornea within normal limits. Periorbital areas with no swelling, redness, or edema. ENT: Nares patent. No nasal discharge, no septal abnormalities noted. Tympanic membranes are normal and external auditory canals are clear. Oropharynx with no redness, swelling, or masses, exudates, or evidence of obstruction, uvula midline. Mucous membranes moist. Neck: Trachea midline, no thyromegaly or masses palpated, and no cervical lymphadenopathy. Supple, full range of motion without nuchal rigidity, or vertebral point tenderness. No Meningismus. Chest/axilla: Normal chest wall appearance and motion. Nontender with no deformity. No lesions are appreciated. Cardiovascular: Regular rate and rhythm with a normal S1 and S2. No gallops, murmurs, or rubs. Normal PMI, no JVD. No pulse deficits. Respiratory: Lungs have equal breath sounds bilaterally, clear to auscultation and percussion. No rales, rhonchi or wheezes noted. No increased work of breathing, no retractions or nasal flaring. Abdomen/GI: Soft, non-tender, with normal bowel sounds. No distension or tympany. No guarding or rebound. No evidence of tenderness throughout. Back: No spinal tenderness. No costovertebral tenderness. Full range of motion. Female : Normal external genitalia. Skin: Warm, dry with normal turgor. Normal color with no rashes, no lesions, and no evidence of cellulitis. Neuro: Awake and alert, GCS 15, oriented to person, place, time, and situation. Cranial nerves II-XII grossly intact. Motor strength 5/5 in all extremities. Sensory grossly intact. Cerebellar exam normal. Normal gait. Psych: Awake, alert, with orientation to person, place and time. Behavior, mood, and affect are within normal limits. 13:32 Musculoskeletal/extremity: Extremities: grossly normal except: erythema, pain, tenderness, DVT Exam: negative Homans' sign noted on exam, no appreciated bluish discoloration, no increased warmth, pain, swelling, tenderness, erythema, Vital Signs: 12:35 BP 116 / 74; Pulse 88; Resp 17; Temp 97.2; Pulse Ox 100% ; Height 5 ft. 5 in. ; Pain ll1 10/10; 14:00 BP 118 / 72; Pulse 81; Resp 18; Temp 97.5; Pulse Ox 98% on R/A; ph 12:35 Pain Scale: Adult ll1 MDM: 12:32 Patient medically screened. [facility] 13:36 Differential diagnosis: contusion, abrasion, tendonitis. Data reviewed: vital signs, [facility] nurses notes, radiologic studies, plain films. Consideration of Admission/Observation Escalation of care including admission/observation considered. I considered the following discharge prescriptions or medication management in the emergency department Medications were administered in the Emergency Department. See MAR. Independent interpretation of the following test(s) in the Emergency Department X-Ray: My interpretation is X RAY NO FB , NO GAS. Care significantly affected by the following chronic conditions: Diabetes. 12/04 12:36 Order name: Tib Fib Left XRAY [facility] 12/04 13:31 Order name: Misc. Order: HOT MOIST COMPRESSES; Complete Time: 13:36 osiel Administered Medications: 13:47 Drug: Doxycycline PO 200 mg PO once Route: PO; ph 14:15 Follow up: Response: No adverse reaction ph 13:47 Drug: Mupirocin Topical Ointment 2 % 1 application Topical once Route: Topical; Site: ph affected area; 14:15 Follow up: Response: No adverse reaction ph 13:47 Drug: Ketorolac IM 60 mg IM once Route: IM; Site: left vastus lateralis; ph 14:15 Follow up: Response: No adverse reaction; Pain is decreased ph 14:29 Not Given (Patient Refused): hydrocodone-acetaminophen(7.5 mg-325 mg) 1 tabs PO once ph Disposition Summary: 12/05/23 13:38 Discharge Ordered Notes: Location: Home [facility] Problem: new osiel Symptoms: have improved osiel Condition: Stable osiel Diagnosis - Puncture wound with foreign body, left lower leg, initial encounter osiel - Struck by other marine mammals, initial encounter osiel Followup: osiel - With: Private Physician - When: 2 - 3 days - Reason: Recheck today's complaints, Continuance of care, Re-evaluation by your physician Followup: osiel - With: Sam Renee MD - When: 2 - 3 days - Reason: Recheck today's complaints, Re-evaluation by your physician Discharge Instructions: - Discharge Summary Sheet osiel - Puncture Wound osiel - Puncture Wound, [id number] osiel - Marine Life Injury, [id number] [facility] Forms: - Medication Reconciliation Form osiel - Antibiotic Education osiel - Prescription Opioid Use osiel - Patient Portal Instructions [facility] - Leadership Thank You Letter [facility] Prescriptions: - Centany 2 % Topical ointment - apply 1 application TOPICAL route 2 times per day; 15 gram; Refills: 0, Product osiel Selection Permitted - diclofenac sodium 50 mg Oral tablet, delayed release (enteric coated) - take 1 tablet ORAL route 3 times per day; 21 tablet; Refills: 0, Product osiel Selection Permitted - Doxycycline Hyclate 100 mg Oral Tablet - take 1 tablet ORAL route every 12 hours; 20 tablet; Refills: 0, Product osiel Selection Permitted - Bactrim DS 800-160 mg Oral tablet - take 1 tablet ORAL route every 12 hours for 5 days; 10 tablet; Refills: 0, osiel Product Selection Permitted Signatures: Dispatcher [employer] Meir Dowell MD MD cha Hall, Patricia, RN RN ph Lewis, Lynsay RN RN ll1
--- NOTE | 2023-12-05 13:38 | ER ---
Nurse's Notes [facility] Name: Ryanne Diamond Age: 68 yrs Sex: Female : 1955 Arrival Date: 12/05/2023 Time: 12:25 Bed 19 Private MD: Diagnosis: Puncture wound with foreign body, left lower leg, initial encounter;Struck by other marine mammals, initial encounter Presentation: 12/04 12:35 Chief complaint: Patient states: [place] catfish fin stuck into her L leg twice 30 min ll1 [employer]. Bleeding controlled. Coronavirus screen: Client denies travel out of the [place] in the last 14 days. At this time, the client does not indicate any symptoms associated with coronavirus-19. Ebola Screen: Patient denies travel to an Ebola-affected area in the 21 days before illness onset. Initial Sepsis Screen: Does the patient meet any 2 criteria? No. Patient's initial sepsis screen is negative. Does the patient have a suspected source of infection? No. Patient's initial sepsis screen is negative. Risk Assessment: Do you want to hurt yourself or someone else? Patient reports no desire to harm self or others. Onset of symptoms was December 05, 2023. 12:35 Method Of Arrival: Wheelchair ll1 13:26 Acuity: ARNOLD 4 ph Triage Assessment: 12:36 General: Appears uncomfortable, Behavior is calm, cooperative, appropriate for age. ll1 Pain: Complains of pain in left leg Pain currently is 10 out of 10 on a pain scale. Quality of pain is described as burning, throbbing. Derm: Reports catfish fin stuck her twice in the L leg. Historical: - Allergies: 12:34 Codeine; ph 12:34 Codeine; ll1 - PMHx: 12:34 Diabetes mellitus; ph 12:34 Diabetes mellitus; ll1 - PSHx: 12:34 hysterectomy; ll1 - Immunization history:: Adult Immunizations unknown, Adult Immunizations up to date, Last tetanus immunization: < 5 years ago. - Infectious Disease History:: Denies. - Social history:: Smoking status: Patient denies any tobacco usage or history of. Smoking status: Patient denies any tobacco usage or history of. - Family history:: not pertinent. Screenin:35 [facility] ED Fall Risk Assessment (Adult) History of falling in the last 3 months, ph including since admission No falls in past 3 months (0 pts) Confusion or Disorientation No (0 pts) Intoxicated or Sedated No (0 pts) Impaired Gait No (0 pts) Mobility Assist Device Used No (0 pt) Altered Elimination No (0 pt) Score/Fall Risk Level 0 - 2 = Low Risk Oriented to surroundings, Maintained a safe environment, Hourly rounding (assess needs \T\ fall precautionary measures) done. Abuse screen: Denies threats or abuse. Denies injuries from another. Nutritional screening: No deficits noted. Tuberculosis screening: No symptoms or risk factors identified. Assessment: 13:15 General: Appears in no apparent distress. uncomfortable, Behavior is calm, cooperative. ph Pain: Complains of pain in lateral aspect of left knee. Neuro: Level of Consciousness is awake, alert, obeys commands, Oriented to person, place, time, situation. Cardiovascular: Capillary refill < 3 seconds in bilateral fingers Patient's skin is warm and dry. Respiratory: Airway is patent Respiratory effort is even, unlabored. Derm: Skin is pink, warm \T\ dry. Vital Signs: 12:35 BP 116 / 74; Pulse 88; Resp 17; Temp 97.2; Pulse Ox 100% ; Height 5 ft. 5 in. ; Pain ll1 10/10; 14:00 BP 118 / 72; Pulse 81; Resp 18; Temp 97.5; Pulse Ox 98% on R/A; ph 12:35 Pain Scale: Adult ll1 ED Course: 12:29 Patient arrived in ED. ra3 12:29 Arm band placed on. ll1 12:32 Meir Burks MD is Attending Physician. osiel 12:34 Vivi Boo, RN is Primary Nurse. ph 12:35 Patient has correct armband on for positive identification. Bed in low position. Call ph light in reach. Side rails up X 1. Pulse ox on. NIBP on. Door closed. Noise minimized. Warm blanket given. 13:18 Tib Fib Left XRAY In Process Unspecified. EDMS 13:26 Triage completed. ph 13:36 Sam Renee MD is Referral Physician. osiel 14:00 No provider procedures requiring assistance completed. Patient did not have IV access ph during this emergency room visit. Administered Medications: 13:47 Drug: Doxycycline PO 200 mg PO once Route: PO; ph 14:15 Follow up: Response: No adverse reaction ph 13:47 Drug: Mupirocin Topical Ointment 2 % 1 application Topical once Route: Topical; Site: ph affected area; 14:15 Follow up: Response: No adverse reaction ph 13:47 Drug: Ketorolac IM 60 mg IM once Route: IM; Site: left vastus lateralis; ph 14:15 Follow up: Response: No adverse reaction; Pain is decreased ph 14:29 Not Given (Patient Refused): hydrocodone-acetaminophen(7.5 mg-325 mg) 1 tabs PO once ph Medication: 15:08 VIS not applicable for this client. ph Outcome: 13:38 Discharge ordered by . osiel 14:29 Patient left the ED. ph 14:29 Discharged to home ambulatory, ph 14:29 Condition: good 14:29 Discharge instructions given to patient, Instructed on discharge instructions, follow up and referral plans. medication usage, Demonstrated understanding of instructions, follow-up care, medications, Prescriptions given X 4, Signatures: Dispatcher [employer] EDMS Meir Burks MD MD cha Hall, Patricia, RN RN ph Miladis Andrade RN RN ll1 Funmilayo Velázquez 3
[2023-12-05] MEDS ORDERED: ONDANSETRON 4 MG (ODT) TAB ONE (13:39)
[2023-12-05 15:00] VITALS: BP 116/74; TEMP 97.2; O2SAT 100
== END 2023-12-05 14:29 | disposition home or self-care (01) ==
LOC: ER 12:25
DX: S81.842A Puncture wound with foreign body, left lower leg, initial encounter (principal); W56.82XA Struck by other nonvenomous marine animals, initial encounter; E11.9 Type 2 diabetes mellitus without complications
CPT/HCPCS: 73590; Q0162; 96372; 99284